=== PATIENT | female | born 1970 | race Hispanic/Latino ===

== ENCOUNTER 2023-08-10 00:32 | Emergency (ER) | payer OTHER ==
--- OUTSIDE RECORDS SUMMARY | 2023-08-10 00:35 | XMS REPORT | Continuity of Care Document ---
:1970 Author Organization [facility] t Address [address] [place] [address] Care Team Providers Name Role Phone BRIAN WARE Primary Care Physician Unavailable Ruth Corona MD Attending Clinician RUTH CORONA Attending Clinician Unavailable RADIOLOGY Attending Clinician Unavailable ABEL NAZARIO Attending Clinician Unavailable Balitbit_R Attending Clinician Unavailable Karolyn Modi Attending Clinician Unavailable RUTH CORONA Admitting Clinician Unavailable Balitbit_R Admitting Clinician Unavailable Karolyn Modi Admitting Clinician Unavailable Payers Payer Name Policy Type Policy Number Effective Date Expiration Date [facility] ([facility]) [id number] Problems Condition Condition Condition Status Onset Resolution Last Treating Co mments Source Name Details Category Date Date Treatment Clinician Date Obesity Obesity Disease Active Univers (BMI (BMI 5-13 ity of 30-39.9) 30-39.9) 00:00: [place] 00 Medical Branch Chest pain Chest pain Disease Active U nivers 5-12 ity of 00:00: [place] 00 Medical Branch Allergies, Adverse Reactions, Alerts Allergy Allergy Status Severity Reaction(s) Onset Inactive Treating Comm ents Source Name Type Date Date Clinician No Known DA Active U 2021-09 [facility] All[facility]ie 0-18 [place] [facility] 00:00: d 00 [facility] NO KNOWN Drug Active [facility] ALLERGIE Class ity of S [facility] Social History Social Habit Start Date Stop Date Quantity Comments Source Gender identity Universit y [facility] Sexual orientation Univer sity [facility] Medical [place] History of Social 2020-04-23 2020-04-23 Univers ity of [place] function 00:00:00 00:00:00 Medical Branch Sex Assigned At [birth year] [facility] Medical Branch Smoking Status Start Date Stop Date Source Tobacco smoking consumption [facility] Medications Ordered Filled Start Stop Current Ordering Indication Dosage Frequency Signature Comments Components Source Medication Medication Date Date Medication? Clinician (SIG) Name Name butalbital- 2022- No 1{tbl} 1 tablet, Univers acetaminoph 05-13 Oral, ity of en-caff 23:30: 23:26 ONCE, 1 [place] (ESGIC) 00 :00 dose, On Medical 50-325-40 [facility] Branch mg tablet 1 05/13/23 at tablet 1830, EDILIA iopamidol 2022- No [id number] 70mL 70 mL, Univers (ISOVUE 05-13 Intravenou ity o f 370-500 mL) 23:15: 23:15 s, ONCE, 1 [place] injection 00 :00 dose, On Medica l 70 mL Sat Branch 05/13/23 at 1815, Routine NaCl 0.9% 2022- No 1000mL at 999 Uni vers (NS) bolus 05-13 mL/hr, ity of infusion 22:00: 23:26 1,000 mL, [place] as 1,000 mL 00 :00 IV Medical Infusion, Branch ONCE, 1 dose, On 05/13/23 at 1700, EDILIA aspirin 0 2022- No 325mg 325 mg, Unive rs tablet 325 05-13 Oral, ity of mg 22:00: 21:10 ONCE, 1 [place] 00 :00 dose, On Medical Sat Branch 05/13/23 at 1700, STAT ketorolac 2022-0 2022- No 30mg 30 mg, Unive rs (TORADOL) 05-13 Slow IV ity of injection 21:45: 21:10 Push, [place] 30 mg 00 :00 ONCE, 1 Medical dose, On Branch 05/13/23 at 1645, EDILIA nirmatrelvi 0 Yes [id number] 3{tbl} Take 3 Univers r-ritonavir 8-26 tablets by it y of (PAXLOVID) 00:00: mouth in [place] as 300 mg (150 00 the Medical mg x 2)-100 morning Branc h mg tablet and 3 tablets in the evening. benzonatate Yes [id number] 200mg Take 1 Univers 200 mg 8-26 capsule by ity of capsule 00:00: mouth 3 [place] 00 (three) Medical times Branch daily as needed for Cough. albuterol Yes [id number] 2{puff} Inhale 2 Univers 90 8-26 Puffs ity of mcg/actuati 00:00: every 4 [place] as on inhaler 00 (four) Medical hours as Branch needed for Wheezing or Shortness of Breath. ondansetron Yes [id number] 1 or 2 Univers 4 mg tablet 8-26 tablets ity o f 00:00: every 8 [place] 00 hours as Medical needed for Branch nausea butalbital- 2022-0 Yes [id number] 1{tbl} Take 1 Univers acetaminoph 8-26 tablet by ity of en-caff 00:00: mouth [place] 50-325-40 00 every 4 Medical mg tablet (four) Branch hours as needed (headache) . methylPREDN 0 Yes [id number] Take by Univers ISolone 1-04 mouth ity of (MEDROL, 00:00: SEE-INSTRU [place] as ANNIA,) 4 mg 00 CTIONS. Medica l tablets follow Branch package directions Immunizations Ordered Immunization Filled Immunization Date Status Commen ts Source Name Name Moderna COVID-19 Moderna COVID-19 2021-06-15 Completed Vaccine Vaccine 00:00:00 Moderna COVID-19 Moderna COVID-19 2021-05-18 Completed Vaccine Vaccine 00:00:00 Vital Signs Vital Name Observation Time Observation Value Comments Source Systolic blood 2023-05-13 23:01:00 131 mm[Hg] Univer sity of pressure [facility] Diastolic blood 2023-05-13 23:01:00 89 mm[Hg] Unive rsity of pressure [facility] Heart rate 2023-05-13 23:01:00 74 /min [facility] Respiratory rate 2023-05-13 23:01:00 18 /min [facility] Oxygen saturation in 2023-05-13 23:01:00 97 /min [facility] Arterial blood by [facility] Pulse oximetry [place] Body temperature 2023-05-13 20:48:00 37.5 Michelle [facility] Body height 2023-05-13 20:48:00 165.1 cm [facility] Body weight 2023-05-13 20:48:00 95.255 kg [facility] BMI 2023-05-13 20:48:00 34.95 kg/m2 [facility] Procedures Procedure Date / Time Performed Performing Clinician Sour e EKG-12 LEAD 2023-05-13 23:29:[address] [facility] CT CHEST PULMONARY 2023-05-13 22:27:53 Ruth Corona [facility] ANGIOGRAM [facility] ASSIGNMENT OF BENEFITS 2023-05-13 21:17:14 Doctor Unassigned, No [facility] Name [facility] Branch LIPASE 2023-05-13 21:05:[address] [facility] TROPONIN I 2023-05-13 21:05:[address] [facility] COMP. METABOLIC PANEL 2023-05-13 21:05:00 Ruth Corona [facility] ([id number]) [facility] CBC WITH DIFF 2023-05-13 21:05:[address] [facility] N-TERMINAL PRO-BNP 2023-05-13 21:05:00 Ruth Corona [facility] CONSENT/REFUSAL FOR 2023-05-13 20:40:54 Doctor Unassigned, No [facility] DIAGNOSIS AND Name [facility] TREATMENT Encounters Start End Encounter Admission Attending Care Care Encounter Source Date/Time Date/Time Type Type Clinicians Facility Department ID 2023-05-13 2023-05-13 Emergency Cj [facility] [id number] [facility] 15:50:00 18:35:00 Ruth JUNIOR [id number] [facility] [id number] [facility] [id number] [facility] 084 Branch 2023-05-13 2023-05-13 Emergency X CJ [facility] ERT [id number] Univers 15:50:00 18:35:00 RUTH [facility] 2022-11-16 2022-11-16 Outpatient R RADIOLOGY [facility] [id number] Univers 00:00:00 00:00:00 [facility] 2022-10-05 2022-10-05 Outpatient R VANHE, [facility] [id number] Univers 14:30:00 14:30:00 ABEL [facility] 2022-07-11 2022-07-11 Outpatient Balitbit_R VFP VFP [id number] [facility] 00:00:00 00:00:00 [id number] Family Practic e 2022-07-07 2022-07-07 Outpatient Balitbit_R VFP VFP [id number] [facility] 00:00:00 00:00:00 [id number] Family Practic e 2022-07-05 2022-07-06 Inpatient EM Modi, [facility] [id number] [facility] 08:11:00 16:31:[address] 2021-06-15 2021-06-15 Outpatient GCCOVIDV GCCOVIDV [id number] [facility] 00:00:00 00:00:00 V 2021-05-18 2021-05-18 Outpatient GCCOVIDV GCCOVIDV [id number] [facility] 00:00:00 00:00:00 V Results Test Description Test Time Test Comments Results Result Comments Source TROPONIN I 2023-05-13 22:03:04 Test Item Value Reference Range Interpretation Comme nts TROPONIN I (test code = 0096925748) <=0.034 TEVIN (test code = TEVIN) Reference (Normal) Range (defined by the 99th percentile reference limit): <= 0.034 ng/mL Note: Cardiac troponin begins to rise 3-4 hours after the onset of ischemia. Repeat in 4-6 hours if the sample was drawn within 3-4 hours of the onset of the symptom and found normal. Diagnosis of myocardial injury is made with acute changes in cTn concentrations with at least one serial sample above the 99th percentile upper reference limit (URL), taken together with the patient's clinical presentation. Biotin has been reported to cause a negative bias, interpret results relative to patient's use of biotin. Lab Interpretation (test code = Normal 80970-5) [id number] 22:00:47 Test Item Value Reference Range Interpretation Comments NT-proBNP (test code = 75141-2) 39 pg/mL <=125 Lab Interpretation (test code = Normal 33041-4) [facility] (96075)2023-05-13 21:52:03 Test Item Value Reference Range Interpretation Comments NA (test code = 139 mmol/L 135-145 4857693531) K (test code = 4.1 mmol/L 3.5-5.0 3406037016) CL (test code = 103 mmol/L 98-108 9351304173) CO2 TOTAL (test code = 27 mmol/L 23-31 9299578424) AGAP (test code = 9 2-16 2517649077) BUN (test code = 18 mg/dL 7-23 7104360197) GLUCOSE (test code = 191 mg/dL 70-110 H 0383145166) CREATININE (test code = 0.86 mg/dL 0.50-1.04 6030773408) TOTAL BILI (test code = 0.5 mg/dL 0.1-1.1 0310698862) CALCIUM (test code = 9.3 mg/dL 8.6-10.6 2820852555) T PROTEIN (test code = 9.1 g/dL 6.3-8.2 H 9123753648) ALBUMIN (test code = 4.6 g/dL 3.5-5.0 6986675080) ALK PHOS (test code = 127 U/L 34-122 H 2790568103) ALTv (test code = 86 U/L 5-35 H 1742-6) AST(SGOT) (test code = 120 U/L 13-40 H 1205088778) eGFR (test code = 69.0 mL/min/1.73m2 7686764432) TEVIN (test code = TEVIN) Association of Glomerular Filtration Rate (GFR) and Staging of Kidney Disease* + --+ --+ ------+| GFR (mL/min/1.73 m2) ?| With Kidney Damage ?| ?Without Kidney Damage+ --------+ --------+ +| ?>90 ?| ?Stage one ?| ? Normal ?+ ---+ ---+ -------+| ?60-89 ?| ?Stage two ?| ? Decreased GFR ? + --+ --+ ------+| ?30-59 ?| ?Stage three ?| ? Stage three ? + --+ --+ ------+| ?15-29 ?| ?Stage four ? | ? Stage four ?+ ---+ ---+ -------+| ?<15 (or dialysis) ? ?| ?Stage five ? | ? Stage five ?+ ---+ ---+ -------+ *Each stage assumes the associated GFR level has been in effect for at least three months. ?Stages 1 to 5, with or without kidney disease, indicate chronic kidney disease. Notes: Determination of stages one and two (with eGFR >59mL/min/1.73 m2) requires estimation of kidney damage for at least three months as defined by structural or functional abnormalities of the kidney, manifested by either:Pathological abnormalities or Markers of kidney damage (including abnormalities in the composition of the blood or urine or abnormalities in imaging tests). Lab Interpretation Abnormal (test code = 29248-5) [facility] 21[facility]51[facility]23 Test Item Value Reference Range Interpretation Comments LIPASE (test code = 4430244261) 183 U/L 0-220 Lab Interpretation (test code = Normal 85709-8) [facility] [id number] 21:35:07 Test Item Value Reference Range Interpretation Comments WBC (test code = 5.46 See_Comment [Automated 4932-2) message] The sy stem which generated this result transmitted reference range : 4.30 - 11.10 10*3/?L. The reference range was not used to interpret this result as normal/abnormal . RBC (test code = 4.32 See_Comment [Automated 036-5) message] The sy stem which generated this result transmitted reference range : 3.93 - 5.25 10*6/?L. The reference range was not used to interpret this result as normal/abnormal . HGB (test code = 13.4 g/dL 11.6-15.0 718-7) HCT (test code = 38.6 % 35.7-45.2 4544-3) MCV (test code = 89.4 fL 80.6-95.5 787-2) MCH (test code = 31.0 pg 25.9-32.8 785-6) MCHC (test code = 34.7 g/dL 31.6-35.1 786-4) RDW-SD (test code = 42.6 fL 39.0-49.9 23695-5) RDW-CV (test code = 13.0 % 12.0-15.5 788-0) PLT (test code = 197 See_Comment [Automated 777-3) message] The sy stem which generated this result transmitted reference range : 166 - 358 10*3/ ?L. The reference r xin was not used to interpret this result as normal/abnormal . MPV (test code = 9.2 fL 9.5-12.9 L 78722-5) NRBC/100 WBC (test 0.0 See_Comment [Automat ed code = 5193780867) message] The system which generated this result transmitted reference range : 0.0 - 10.0 /100 WBCs. The refer ence range was not u sed to interpret th is result as normal/abnormal . NRBC x10^3 (test code See_Comment [Auto mated = 5054471295) message] The s ystem which generated this result transmitted reference range : 10*3/?L. The reference range was not used to interpret this result as normal/abnormal . GRAN MAT (NEUT) % 53.0 % (test code = 770-8) IMM GRAN % (test code 0.40 % = 6351277175) LYMPH % (test code = 31.7 % 736-9) MONO % (test code = 12.8 % 5905-5) EOS % (test code = 1.6 % 713-8) BASO % (test code = 0.5 % 706-2) GRAN MAT x10^3(ANC) 2.89 10*3/uL 1.88-7.09 (test code = 6615075414) IMM GRAN x10^3 (test 0.00-0.06 code = 2995721111) LYMPH x10^3 (test code 1.73 10*3/uL 1.32-3.29 = 731-0) MONO x10^3 (test code 0.70 10*3/uL 0.33-0.92 = 742-7) EOS x10^3 (test code = 0.09 10*3/uL 0.03-0.39 711-2) BASO x10^3 (test code 0.03 10*3/uL 0.01-0.07 = 704-7) Lab Interpretation Abnormal (test code = 11861-2) [facility] METABOLIC [id number] 10:14:00 Test Item Value Reference Range Interpretation Comments SODIUM (test code = NA) 132 mmol/l 134.0-147.0 L POTASSIUM (test code = K) 3.7 mmol/L 3.6-5.2 N CHLORIDE (test code = CL) 97 mmol/l 98.0-107.0 L CARBON DIOXIDE (test code = CO2) 29.3 mmol/l 21.0-33.0 N ANION GAP (test code = GAP) 9.4 0-20 N GLUCOSE (test code = GLU) 282 mg/dl 70.0-110.0 H BLOOD UREA NITROGEN (test code = 12 mg/dl 7.0-18.0 N BUN) CREATININE (test code = CREAT) 0.74 mg/dL 0.60-1.30 N GFR NON BLACK (test code = 87 mL/min 90-95 L GFRNONBLACK) GFR BLACK (test code = GFRBLACK) 106 mL/min 109-115 L CALCIUM (test code = CA) 9.0 mg/dl 8.0-10.5 N LIPID PROFILE (CORONARY RISK)2022-07-06 10:14:00 Test Item Value Reference Range Interpretation Comments TRIGLYCERIDES (test code = TRIG) 125 mg/dl 40.0-150.0 N CHOLESTEROL (test code = CHOL) 205 mg/dl 0.0-200.0 H CHOLESTEROL/HDL RATIO (test code = 4.8 RATIO CHOLHDL) HDL CHOLESTEROL (test code = HDL) 43 mg/dl 30.0-60.0 N LIPOPROTEIN LDL (test code = LDL) 142 mg/dl 70-130 H [id number] 10:07:00 Test Item Value Reference Range Interpretation Comments HGBA1C% (test code = HGBA1C%) 11.2 %A1C 4.8-6.0 H ESTIMATED AVERAGE GLUCOSE (test 275 MG/DL code = EAG) BASIC METABOLIC [id number] 09:41:00 Test Item Value Reference Range Interpretation Comments SODIUM (test code = NA) 133 mmol/l 134.0-147.0 L POTASSIUM (test code = K) 3.5 mmol/L 3.6-5.2 L CHLORIDE (test code = CL) 95 mmol/l 98.0-107.0 L CARBON DIOXIDE (test code = CO2) 30.3 mmol/l 21.0-33.0 N ANION GAP (test code = GAP) 11.2 0-20 N GLUCOSE (test code = GLU) 293 mg/dl 70.0-110.0 H BLOOD UREA NITROGEN (test code = 9 mg/dl 7.0-18.0 N BUN) CREATININE (test code = CREAT) 0.85 mg/dL 0.60-1.30 N GFR NON BLACK (test code = 74 mL/min 90-95 L GFRNONBLACK) GFR BLACK (test code = GFRBLACK) 90 mL/min 109-115 L CALCIUM (test code = CA) 9.1 mg/dl 8.0-10.5 N B-TYPE NATRIURETIC [id number] 09:41:00 Test Item Value Reference Range Interpretation Comments B-TYPE NATRIURETIC PEPTIDE (test 5.2 PG/ML 5-100 N code = BNP) TROP-I HIGH [id number] 09:41:00 Test Item Value Reference Range Interpretation Comments TROP-I HIGH 5.2 pg/mL 0.0-51.4 N CAUTION: Units of the SENSITIVITY (test current TR OPI-HS test code = TROPIHS) methodology( pg/mL) differ from the prior test methodolog y (ng/mL) by afac tor of 1000. -------- -------- ---99th Percentile: Fem ales: 0.0-51.4 pg/mL Males: 0.0-76.2 pg/repacker hese results were ob tained using Dimension EXL TnIHreagent. Re sults from different methodologies s hould not becompared to one another as addi titative results may carol y bymethod. CBC W/AUTO [id number] 09:14:00 Test Item Value Reference Range Interpretation Comments WHITE BLOOD CELL (test code = 7.7 K/mm3 4.5-11.0 N WBC) RED BLOOD CELL (test code = 5.02 M/mm3 3.80-5.20 N RBC) HEMOGLOBIN (test code = HGB) 14.8 gm/dL 12.0-16.0 N HEMATOCRIT (test code = HCT) 43.0 % 36.0-48.0 N MEAN CELL VOLUME (test code = 85.7 UM3 82.0-99.0 N MCV) MEAN CELL HGB (test code = MCH) 29.5 UUG 25.5-32.5 N MEAN CELL HGB CONCETRATION 34.4 gm/dL 29.0-35.5 N (test code = MCHC) RED CELL DISTRIBUTION WIDTH 12.2 % 11.5-15.0 N (test code = RDW) RED CELL DISTRIBUTION WIDTH SD 38.2 fL 34.8-50.2 N (test code = RDW-SD) PLATELET COUNT (test code = 250 K/mm3 150-400 N PLT) MEAN PLATELET VOLUME (test code 9.4 fl 7.4-10.4 N = MPV) NEUTROPHIL % (test code = NT%) 55.4 % 49.0-76.0 N IMMATURE GRANULOCYTE % (test 0.7 % 0.0-0.4 H code = IG%) LYMPHOCYTE % (test code = LY%) 35.4 % 23.0-38.0 N MONOCYTE % (test code = MO%) 5.1 % 1.0-10.0 N EOSINOPHIL % (test code = EO%) 2.9 % 1.0-5.0 N BASOPHIL % (test code = BA%) 0.5 % 0.0-1.0 N NUCLEATED RBC % (test code = 0.0 % 0.0-0.1 N NRBC%) NEUTROPHIL # (test code = NT#) 4.3 K/mm3 2.4-6.3 N IMMATURE GRANULOCYTE # (test 0.05 x10 3/uL 0.00-0.07 N code = IG#) LYMPHOCYTE # (test code = LY#) 2.7 K/mm3 1.2-4.0 N MONOCYTE # (test code = MO#) 0.4 K/mm3 0.0-0.6 N EOSINOPHIL # (test code = EO#) 0.2 K/MM3 0.0-0.7 N BASOPHIL # (test code = BA#) 0.0 K/mm3 0.0-0.2 N NUCLEATED RBC # (test code = 0.00 X10 3uL 0.00-0.01 N NRBC#) - XR CHEST 1 [id number] 08:34:00 [facility] 1970 Sex: F FAX: Becky Vincent DO [place]: EM St: REG -------- Name: VALENTINO SOTO [facility] : 1970 Age/S: 51/F [address] Unit #: [id number] Loc: [facility] [employer], [place]: [place] [id number] Acct: [id number] Dis Date: Status: REG ER PHONE #: [phone] Exam Date: 07/05/2022824 FAX #: [phone] Reason: SOB EXAMS: CPT CODE: [id number] XR CHEST 1 V 46198 LOCATION: B2 EXAM: - XR CHEST 1 V HISTORY: SOB COMPARISON: None FINDINGS: The lungs are clear. No pleural effusion or pneumothorax. The cardiac silhouette is within normal limits. No acute osseous abnormalities. IMPRESSION: No acute cardiopulmonary disease. at 0834 Reported and signed by: Dk Gutierrez M.D. CC: Becky Vincent DO Technologist: CARLOS BRIONES Trnscrd Date/Time/By: 07/05/2022 (0834) : By: [email or web address] PAGE 1 Signed Report FAX: Becky Vincent DO [place]: St: REG Name: VALENTINO SOTO [facility] : 1970 Age/S: 51/F [address] [facility] Unit #: [id number] Loc: [facility] [employer], [place]: [place] [id number] Acct: [id number] Dis Date: Status: REG ER PHONE #: [phone] Exam Date: 07/05 FAX #: [phone] Reason: SOB EXAMS: CPT CODE: [id number] XR CHEST 1 V 50140 (Continued) Orig Print D/T: S: 07/05/2022 (0838) PAGE 2 Signed Report Notes Date/Time Note Provider Source 2023-05-13 7156-48-48N87:34:19Formatting of this Karyn Peace [facility] 18:34:19 note might be different from the RN original.Pt discharged with diagnosis of COVID-19, CP, dyspnea, and non intractable ARANA. Printed and verbal instructions reviewed with and given to patient. Prescriptions given x 5. Pt verbalized understanding of teaching, medications, and recommended follow-up. Denies questions or concerns at this time. Pt ambulatory at discharge. Appears in no apparent distress. No ataxia noted. Accompanied by family member. 70450-9Zkqfmytsn department ZnsmQC7309-22-68O71:35:02Emelifepoint health department NoteTXT1.2.840.471451.1.13.104.2.7.2.72 7879|[id number] for patient [id number] N Dewoody RN[id number] ROMQOMHCUGOUGZWXWRC0822-83-20U37:35:021 .2.840.587545.1.72.3.15|1.2.840.531586. 1.13.104.2.7.2.727879_[id number] 2023-05-13 5705-52-83S43:46:58Formatting of this Annia nguyen RN [facility] 15:46:58 note might be different from the original.Patient states: "I took a covid test yesterday and it was positive. I just feel like I'm getting worse. The chest pain and shortness of breath is getting worse" Pmhx: diabetes. 50354-8Tjgjbdhjt department Triage jffjKP8845-15-71J92:48:12[facility]oint health department Triage noteTXT1.2.840.780735.1.13.104.2.7.2.72 7879|[id number] for patient xmts48670-5Aflwgmoxg department [id number] M Cruz RN[id number] IZEVMGDGHIOAJAXGFEK5456-72-27B55:48:121 .2.840.080100.1.72.3.15|1.2.840.142159. 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 (+) fever, tmax 102F. Frontal headache. No rhinorrhea, sore throat. (+) cough, non-productive. (+) dyspnea, new onset. Left sided chest pain, sharp, constant, aggravated with cough, no definitive relieving factors. No nausea, vomiting, diarrhea. No abdominal pain. No dysuria,frequency. COVID (+) home test yesterday. Brother 04/23/23 from COVID infection. History provided by: PatientPast Medical History/Immunizations:History reviewed. No pertinent past medical history.Tetanus received in last 5 years: Unknown Allergies:No Known AllergiesPast Social History:Substance & Sexual Activity No substance use or sexual activity history on file. Past Surgical History:History reviewed. No pertinent surgical history.Review of Systems: Review of Systems Constitutional: Positive for appetite change, fatigue and fever. HENT: Negative. Eyes: Negative. Respiratory: Positive for cough and shortness of breath. Cardiovascular: Positive for chest pain. Negative for palpitations and leg swelling. Gastrointestinal: Negative. Genitourinary: Negative. Musculoskeletal: Positive for myalgias. Neurological: Negative. Psychiatric/Behavioral: Negative. Physical Exam: ED Triage Vitals [05/13/23 1548] Weight 95.3 kg (210 lb) Actual or estimated Estimated by patient/family report Height 1.651 m (5' 5") BP (!) 139/95 Pulse 105 Resp 18 Temp 37.5 ?C (99.5 ?F) Temp source Oral SpO2 100 % Measured on Room air Physical ExamVitals and nursing note reviewed. Constitutional: Appearance: Normal appearance. HENT: Head: Normocephalic and atraumatic. Right Ear: External ear normal. Left Ear: External ear normal. Nose: Nose normal. Mouth/Throat: Mouth: Mucous membranes are moist. Eyes: Extraocular Movements: Extraocular movements intact. Conjunctiva/sclera: Conjunctivae normal. Cardiovascular: Rate and Rhythm: Regular rhythm. Tachycardia present. Pulmonary: Effort: Pulmonary effort is normal. No respiratory distress. Breath sounds: Normal breath sounds. No wheezing, rhonchi or rales. Comments: No accessory muscle use, speaks easily. Chest: Chest wall: No tenderness. Abdominal: General: There is no distension. Palpations: Abdomen is soft. Tenderness: There is no abdominal tenderness. Musculoskeletal: General: Normal range of motion. Cervical back: Normal range of motion. Right lower leg: No edema. Left lower leg: No edema. Skin: General: Skin is warm and dry. Neurological: General: No focal deficit present. Mental Status: She is alert. Psychiatric: Mood and Affect: Mood normal. Behavior: Behavior normal. Thought Content: Thought content normal. Judgment: Judgment normal. Radiology:CT CHEST PULMONARY ANGIOGRAM Final Result CTA CHEST WITH IV CONTRAST ORDERING PHYSICIAN: RUTH CORONA HISTORY: Chest pain, shortness of breath COMPARISON: None available TECHNIQUE: CTA of the chest with IV contrast. Standard and 3D and coronal MIP reconstructions performed. CT scan performed according to ALARA (As low as reasonably achievable) principles. FINDINGS: Heart size is normal. Aorta is normal in caliber. There is no aneurysm. There is no dissection. There is no pulmonary embolism. Upper abdomen is unremarkable. Bones are unremarkable. No pulmonary infiltrates are identified. IMPRESSION No pulmonary embolism Normal aorta No pulmonary infiltrates or pleural effusions HS:Y RL: 5252 Lab Results:Lab Results CBC WITH DIFF - Abnormal Result Value Ref Range WBC 5.46 4.30 - 11.10 10*3/?L RBC 4.32 3.93 - 5.25 10*6/?L HGB 13.4 11.6 - 15.0 g/dL HCT 38.6 35.7 - 45.2 % MCV 89.4 80.6 - 95.5 fL MCH 31.0 25.9 - 32.8 pg MCHC 34.7 31.6 - 35.1 g/dL RDW-SD 42.6 39.0 - 49.9 fL RDW-CV 13.0 12.0 - 15.5 % PLT 197 166 - 358 10*3/?L MPV 9.2 (*) 9.5 - 12.9 fL NRBC/100 WBC 0.0 0.0 - 10.0 /100 WBCs NRBC x10^3 <0.01 10*3/?L GRAN MAT (NEUT) % 53.0 % IMM GRAN % 0.40 % LYMPH % 31.7 % MONO % 12.8 % EOS % 1.6 % BASO % 0.5 % GRAN MAT x10^3(ANC) 2.89 1.88 - 7.09 10*3/uL IMM GRAN x10^3 <0.03 0.00 - 0.06 10*3/uL LYMPH x10^3 1.73 1.32 - 3.29 10*3/uL MONO x10^3 0.70 0.33 - 0.92 10*3/uL EOS x10^3 0.09 0.03 - 0.39 10*3/uL BASO x10^3 0.03 0.01 - 0.07 10*3/uL COMP. METABOLIC PANEL (57694) - Abnormal NA 139 135 - 145 mmol/L K 4.1 3.5 - 5.0 mmol/L CL 103 98 - 108 mmol/L CO2 TOTAL 27 23 - 31 mmol/L AGAP 9 2 - 16 BUN 18 7 - 23 mg/dL GLUCOSE 191 (*) 70 - 110 mg/dL CREATININE 0.86 0.50 - 1.04 mg/dL TOTAL BILI 0.5 0.1 - 1.1 mg/dL CALCIUM 9.3 8.6 - 10.6 mg/dL T PROTEIN 9.1 (*) 6.3 - 8.2 g/dL ALBUMIN 4.6 3.5 - 5.0 g/dL ALK PHOS 127 (*) 34 - 122 U/L ALTv 86 (*) 5 - 35 U/L AST(SGOT) 120 (*) 13 - 40 U/L eGFR 69.0 mL/min/1.73m2 TROPONIN I - Normal TROPONIN I <0.012 <=0.034 ng/mL N-TERMINAL PRO-BNP - Normal NT-proBNP 39 <=125 pg/mL LIPASE - Normal LIPASE 183 0 - 220 U/L EKG:If EKG completed, see Procedure Note. Orders and Treatments:Orders Placed This Encounter Procedures CT CHEST PULMONARY ANGIOGRAM CBC WITH DIFF COMP. METABOLIC PANEL (04692) TROPONIN I N-TERMINAL PRO-BNP LIPASE Orders Placed This Encounter Medications ketorolac (TORADOL) injection 30 mg aspirin tablet 325 mg NaCl 0.9% (NS) bolus infusion 1,000 mL iopamidol (ISOVUE 370-500 mL) injection 70 mL oseurtmknq-qqjqtpkyhyvpi-ywlr (ESGIC) 50-325-40 mg tablet 1 tablet nirmatrelvir-ritonavir (PAXLOVID) 300 mg (150 mg x 2)-100 mg tablet benzonatate 200 mg capsule albuterol 90 mcg/actuation inhaler ondansetron 4 mg tablet prdlyglwrt-kppddhngwkvzi-qnqp 50-325-40 mg tablet First Provider Eval:ED Events Date/Time Event User Comments 05/13/23 1545 Medical Screening Begins RUTH CORONA MD -- 05/13/23 1545 First Provider Evaluation RUTH CORONA MD -- No notes of EC Admission Criteria type on file.ED COURSEDiagnosis/Impression as of 05/13/23 1829 Chest pain, unspecified type Dyspnea, unspecified type COVID-19 virus infection Nonintractable headache, unspecified chronicity pattern, unspecified headache type Procedures: EKG-12 Lead ROUTINE ONCEDate/Time: 05/13/2023 4:28 PMPerformed by: Ruth Corona MDAuthorized by: Ruth Corona MD ECG reviewed by ED Physician in the absence of a cardiac sonographer: yes Previous ECG: Previous ECG: Compared to current Comparison ECG info: Compared to EKG of 01/28/2019 no significant changesInterpretation: Interpretation: non-specific Rate: ECG rate: 91 ECG rate assessment: normal Rhythm: Rhythm: sinus rhythm Ectopy: Ectopy: none QRS: QRS axis: Normal (-79) QRS conduction: RBBB ST segments: ST segments: Non-specificT waves: T waves: non-specific Comments: Qtc 501MDM:Medical Decision MakingPrimary impression: COVID 19 infectionSecondary impression: chest pain, dyspnea, headacheDifferential Diagnoses, including but not limited to: pneumonia, PE, acute coronary event, PTXProblems Addressed:Chest pain, unspecified type: acute illness or injuryCOVID-19 virus infection: acute illness or injuryDyspnea, unspecified type: acute illness or injuryNonintractable headache, unspecified chronicity pattern, unspecified headache type: acute illness or injuryAmount and/or Complexity of Data ReviewedIndependent Historian: Details: selfLabs: ordered. Decision-making details documented in ED Course.Radiology: ordered. Decision-making details documented in ED Course.ECG/medicine tests: ordered and independent interpretation performed. Decision-making details documented in ED Course.RiskOTC drugs.Prescription drug management.Risk Details: Findings and differential diagnosis discussed with the patient, including but not limited to heart attack. HEART Score 2, low likelihood of acute coronary event. I have recommended and offered further evaluation by serial troponin. The patient acknowledges and understands my recommendations and clinical concerns, as well as the risks of worsening condition or misdiagnosis. The patient declines further ED testing. She is ready to go home. The patient appears to have appropriate medical decision making capacity. She has (+) COVID test at home. Symptoms congruent with COVID. No indication for repeat testing. Follow-up with PCP Flowsheet Documentation: Scoring Tools: No data recordedHEART Score: 2 Disposition/Condition:ED Disposition ED Disposition Disch - Home Condition Stable Comment -- Discharge Medications:Patient's Medications START taking these medications ALBUTEROL 90 MCG/ACTUATION INHALER Inhale 2 Puffs every 4 (four) hours as needed for Wheezing or Shortness of Breath. BENZONATATE 200 MG CAPSULE Take 1 capsule by mouth 3 (three) times daily as needed for Cough. SEUXOVJHAB-CXKDAJXDQGJRX-NXVX 50-325-40 MG TABLET Take 1 tablet by mouth every 4 (four) hours as needed (headache). NIRMATRELVIR-RITONAVIR (PAXLOVID) 300 MG (150 MG X 2)-100 MG TABLET Take 3 tablets by mouth in the morning and 3 tablets in the evening. ONDANSETRON 4 MG TABLET 1 or 2 tablets every 8 hours as needed for nausea CONTINUE taking these medications which have NOT CHANGED METHYLPREDNISOLONE (MEDROL, ANNIA,) 4 MG TABLETS Take by mouth SEE-INSTRUCTIONS. follow package directions START taking Modified Medications as Prescribed No medications on file STOP taking these medications No medications on file Follow-up:PCPElectronically signed by: Ruth Corona MD05/13/23 1829 [id number] Emergency department [id number]:29:43Physician Emergency department [id number] for patient [id number] department Note[address] Xs[id number] UVXEOKVWCEOWHXCCOOP6615-50-16T85:29:431 .2.840.843004.1.72.3.15|[id number]. [id number] 2022-07-06 [id number]:18:[id number] HCAMN 16:18:[address] [address] PATIENT NAME: VALENTINO SOTO ADMIT DATE: 07/05/22ACCOUNT NO: [id number] ROOM NO: [facility] AGE: 51 REPORT TYPE: eVASCULAR STUDY DATE OF : 68 SEX: F ADMITTING PHYSICIAN:Karolyn Modi MD ATTENDING PHYSICIAN:Karolyn Modi MD *[facility]*[address], [place] [address]Oawqb: [phone]: [phone] Lower Extremity Arterial Duplex Evaluation Patient: Geeta Soto Date: 07/06/2022 BP: Location: COCMNURN: [id number] : 1970 Age: 51 Height: 0 in / 0 cmAccession#: [id number] Gender: F Weight: 0 lb / 0 kgBMI/BSA: / *Ordering Physician: * Nadia TroyInterpreting Physician: * April Loredo MD*Land Leases And Rentals Manager: * Diogenes Castro RVT Indica tions: Claudication. Study data: Lower extremity arterial duplex evaluation. Bilateralevaluation with grayscale 2D imaging, color Doppler imaging, andspectral Doppler analysis. Location: Vascular laboratory. Patientstatus: Inpatient. Patient room number: 415. Study status: Routine. Arteri al flow: Location PSV* Flow analysis Location PSV* Flow analysisR EIA 98 Triphasic L EIA 80 Triphasic waveform waveformR TOLL TESTBOARD WORKER 124 Triphasic L TOLL TESTBOARD WORKER 93 Triphasic waveform waveformR FA, prox 115 Triphasic L FA, prox 97 Triphasic waveform waveformR FA, mid 103 Triphasic L FA, mid 98 Triphasic waveform waveformR FA, distal 72 Triphasic L FA, distal 70 Triphasic waveform waveformR popliteal 77 Triphasic L popliteal 67 Triphasic PATIENT NAME: VALENTINO SOTO waveform waveformR MALCOLM, distal 70 Triphasic L MALCOLM, distal 69 Triphasic waveform waveformR TREND INVESTIGATOR, distal 69 Triphasic L TREND INVESTIGATOR, distal 63 Triphasic waveform waveform *Velocities are expressed in cm/sec, Diameters are expressed in cm Conclu sions There is no evidence of stenosis involving the bilateral lowerextremities. Prepared and electronically signed by April Loredo MD07/06/2022 16:16 at 1618 PATIENT NAME: VALENTINO SOTO [id number]:18:00E.[id number] 10AVAvailable for patient mjgjCTTYKRSZWMTQCP1468-35-49V96:19:14 2022-07-06 [id number]:33:00 [facility] HCAMN 10:33:00 [facility] ([facility])Hospitalist Discharge SummaryREPORT#:[id number] REPORT STATUS: SignedDATE:07/06/22 TIME: 1033 PATIENT: AVLENTINO SOTO UNIT #: [id number]#: [id number] ROOM/BED: 415-1DOB: [birth year] AGE: 51 SEX: F ATTEND: Karolyn Modi [facility] AUTHOR: Maine Silva MD * ALL edits or amendments must be made on the electronic/computer document * General InformationDischarge date: 07/06/22Discharge diagnosis:chest painHospital course:Atypical chest pain ACS ruled out CXR unremarkable Cardiology consulted ECHO HTN -- controlled start meds and monitor Hyponatremia -- monitor the trend Hypokalemia -- replace as needed Obesity -- needs life style modification with diet and exercise check HbA1c , lipid panel VTE PPX -- SCDs Pt. condition on discharge: improvedAllergies:Allergies:No Known Allergies (Coded, 07/05/22) Med Rec Med RecDischarge meds:Start taking the following new medications:SPIRONOLACTONE (ALDACTONE) 25 MG TAB 12.5 MILLIGRAM ORAL DAILY. Qty = 30 No Refills amLODIPine (NORVASC) 5 MG TAB 5 MILLIGRAM ORAL EVERY 12 HOURS. Qty = 60 No Refills ObjectiveVS/I OLast Documented: Result Date Time Pulse Ox 98 07/06 713 B/P 134/90 07/06 713 B/P Mean 104.7 07/06 713 O2 Delivery Room air 07/06 713 Temp 36.9 07/06 713 Pulse 74 07/06 713 Resp 17 07/06 713 24 hour I O ending at 0700: 07/06 0700 07/05 1900 Intake Total Output Total Balance Patient 105.455 kg Weight Weight Stated/Reported Measurement Method General appearance: alert, awake, orientedHead/Eyes: atraumaticENT: moist mucosal membranesNeck: full range of motion, no masses or swellingCardiovascular: normal heart sounds, regular rate rhythmRespiratory: clear to auscultation, no distressAbdomen: non-tender, normal bowel sounds, soft, no distentionExtremities: moves all, no cyanosis, no edemaMusculoskeletal: normal inspectionNeuro/GLASS DEPOSITION TENDER: alert, oriented X 3, normal speech, no motor deficitsSkin: dry, intactPsychiatry: normal mood ResultsFindings/Data:Laboratory Tests: 07/06 Chemistry Sodium (134.0 - 147.0 mmol/l) 132 L Potassium (3.6 - 5.2 mmol/L) 3.7 Chloride (98.0 - 107.0 mmol/l) 97 L Carbon Dioxide (21.0 - 33.0 mmol/l) 29.3 Anion Gap (0 - 20) 9.4 BUN (7.0 - 18.0 mg/dl) 12 Creatinine (0.60 - 1.30 mg/dL) 0.74 Est GFR ( Amer) (109 - 115 mL/min) 106 L Est GFR (Non-Af Amer) (90 - 95 mL/min) 87 L Glucose (70.0 - 110.0 mg/dl) 282 H Hemoglobin A1c (4.8 - 6.0 %A1C) 11.2 H Estim Average Glucose (MG/DL) 275 Calcium (8.0 - 10.5 mg/dl) 9.0 Triglycerides (40.0 - 150.0 mg/dl) 125 Cholesterol (0.0 - 200.0 mg/dl) 205 H LDL Cholesterol (70 - 130 mg/dl) 142 H HDL Cholesterol (30.0 - 60.0 mg/dl) 43 Cholesterol/HDL Ratio (RATIO) 4.8 Discharge Instructions PCPPCP follow-up:PCP: Undefined Provider Discharge to: Home/Self CareAdditional Discharge Routines: PCP Follow-Up, Clother In Follow-UpDiet: Resume Home Diet/FeedsActivity: Resume Normal ActivityDischarge management: greater than 30 mins, face to face encounter Follow-up AppointmentsPCP follow-up: PCP: Undefined Provider PCP follow up timeframe: In 1-2 weeksConsulting provider 1: Provider 1: April Loredo MD Specialty: CardiologyInterventional at 1034 RPT #:[id number] OF REPORTDSDischarge [id number]:33:00E.[id number] AVAvailable for patient qitjAULONRHADKCLUA7987-90-06C07:34:20 2022-07-06 [id number]:59:00 [facility] 08:59:00 [facility] ([facility])Cardiology Progress NoteREPORT#:[id number] REPORT STATUS: SignedDATE:07/06/22 TIME: 0859 PATIENT: VALENTINO SOTO UNIT #: [id number]#: [id number] [address] [birth year] AGE: 51 SEX: F ATTEND: ModiKitaKarolyn H [facility] AUTHOR: Nadia Troy NP * ALL edits or amendments must be made on the electronic/computer document * SubjectiveChief complaint:neck painclaudication of lt leg.Patient reports:No: chest pain, palpitations, shortness of breath. Nursing reports:No: complaints. Comments:Patient is on room air, complaining of left leg claudications when walking this morning. Reports left leg pain with dorsiflexionPt rec'd meds late today d/t confusion of assignment, spoke w/ RN. Objective GeneralVS/I O:24 hour I O ending at 0700: 07/05 1900 07/06 0700 Intake Total Output Total Balance Patient 105.455 kg Weight Weight Stated/Reported Measurement Method Vital Signs: Date Time Temp Pulse Resp B/P B/P Pulse O2 O2 Flow FiO2 Mean Ox Delivery Rate 07/06 1109 98.4 80 17 145/87 106.5 99 07/06 0713 98.4 74 17 134/90 104.7 98 Room air 07/06 0315 97.9 73 18 149/90 109.5 98 07/05 2308 97.5 70 18 133/87 102.1 98 07/05 2019 97.9 71 12 143/90 107.7 99 07/05 1500 67 16 141/91 107 95 Room air PATIENT WEIGHT: Weight (lb): Weight (oz): Weight (kg): 105.455 Medications:Active Meds + DC'd Last 24 HrsSpironolactone (ALDACTONE) 12.5 MG DAILY PO Amlodipine Besylate (NORVASC 5MG) 5 MG Q12HR PO Potassium Chloride (POTASSIUM CHLORIDE 20 MEQ TAB.ER) 20 MEQ ONCE ONE PO (DC) Hydralazine HCl (APRESOLINE 50 MG TABLET) 50 MG Q6H PRN PRN PO Physical ExamGeneral appearance: alert, awake, oriented, no acute distress, pleasant, conversational, mental status normal, no respiratory distressHead/Eyes: atraumatic, clear corneaENT: moist mucosal membranesNeck: full range of motion, no JVDCardiovascular: CV assessment: regular rate and rhythm, no murmurRespiratory: clear to auscultation, no distressAbdomen: soft, non-tender, normal bowel sounds, no distention, no guardingGenitourinary: no flank pain, no urinary catheterUpper extremity: UE assessment: normal temperature, no edemaLower extremity: LE assessment: normal temperature, no edema, lef leg pain w/ dorsiflexion.Musculoskeletal: normal inspectionNeuro/GLASS DEPOSITION TENDER: alert, oriented X 3, normal speechPsychiatry: normal affect, normal judgment/insight ResultsFindings/Data:Laboratory Tests 07/06 07/06 0912 0912 Chemistry Sodium (134.0 - 147.0 mmol/l) 132 L Potassium (3.6 - 5.2 mmol/L) 3.7 Chloride (98.0 - 107.0 mmol/l) 97 L Carbon Dioxide (21.0 - 33.0 mmol/l) 29.3 Anion Gap (0 - 20) 9.4 BUN (7.0 - 18.0 mg/dl) 12 Creatinine (0.60 - 1.30 mg/dL) 0.74 Est GFR ( Amer) (109 - 115 mL/min) 106 L Est GFR (Non-Af Amer) (90 - 95 mL/min) 87 L Glucose (70.0 - 110.0 mg/dl) 282 H Hemoglobin A1c (4.8 - 6.0 %A1C) 11.2 H Estim Average Glucose (MG/DL) 275 Calcium (8.0 - 10.5 mg/dl) 9.0 Triglycerides (40.0 - 150.0 mg/dl) 125 Cholesterol (0.0 - 200.0 mg/dl) 205 H LDL Cholesterol (70 - 130 mg/dl) 142 H HDL Cholesterol (30.0 - 60.0 mg/dl) 43 Cholesterol/HDL Ratio (RATIO) 4.8 Results: labs reviewed, vital signs reviewed, vital signs stable, rhythm personally rev'd, current med profile rev'dTelemetry Interpretation:Normal sinus rhythm to sinus tachycardia. Diagnosis, Assessment PlanProblem List/A P: 1. Chest pain Plan discussed with: patient, nurse Free Text DxA P NotesFree Text DxA P Notes:Mr. Soto is a pleasant 51 y/o Female w/ PMHx: HTN presents to [facility] ED today for chest discomfort and dizziness. Dr. Loredo is consulted for chest pain. Per patient while at work yesterday she experienced chest discomfort, "pinch" raditated to her left shoulder, lasted all night, she took Gltplyfwwbgha589fy po x 1. Chest discomfort is worsen w/ deep breath. She also experienced dizziness, "off," bright light corners of her eyes, spinning sensation, and nausea - checked her BP which was 172/100 w/ HR 90's. Denied HAs, reports neck "tightness." Denied trauma. Her normal BP was 130's few weeks ago. Per note, her significant other recently had [place] 2 weeks ago. ED work-up: Sodium 138 potassium 3.5. High sensitive troponin negative x1. EKGshowed normal sinus rhythm with right bundle branch block with heart rate 93 bpmBNP 5.2 chest x-ray unremarkable. At present, on RA, NAD. - Chest pain, atypical. HS troponin negative. EKG shows RBBB. EF 55 to 60% with grade 1 diastolic dysfunction - HTN. BP elevated this morning since not rec'd meds. Cont norvasc 5mg po bid and Aldactone 12.5 mg p.o. daily On hydralazine PRN. - Left LE pain. Will do arterial doppler. Discussed echo result w/ pt and f/u w/ Dr. Loredo in 2 wks. Rx is given to nurse.Okay DC home from cardiac standpoint if arterial doppler normal. at 1428 at 2331 RPT #:[id number] OF REPORTPRProgress [id number]:59:00E.[id number] 060AVAvailable for patient [id number]:28:38 2022-07-05 [id number] HCAMN 19:39:[address] [address] PATIENT NAME: VALENTINO SOTO ADMIT DATE: 07/05/22ACCOUNT NO: [id number] [facility] 51 REPORT TYPE: ECHOCARDIOGRAM REPORT DATE OF : 68 SEX: F ADMITTING PHYSICIAN:Karolyn Modi MD ATTENDING PHYSICIAN:Karolyn Modi MD *[facility]*[address], [place] [address]Kainz: [phone]: [phone] Transthoracic Echocardiogram Patient: Geeta Soto Date: 07/05/2022 BP: Location: [facility]: [id number] : 1970 Age: 51 Height: 65 in / 165 cmAccession#: [id number] Gender: F Weight: 231 lb / 105 kgBMI/BSA: 38.6 kg/m 2 / 2.24 m 2 *Ordering Physician: * Nadia TroyInterpreting Physician: * April Loredo MD*Land Leases And Rentals Manager: * Monik Diaz RVT, RDCS Indica tions: Chest Pain, unspecified. Study data: Transthoracic echocardiogram. Procedure: Transthoracicechocardiography was performed. Images were obtained using a [place] cardiacultrasound machine. The study was technically limited due to pooracoustic window availability. Complete 2D, complete spectral Doppler,and color Doppler. Patient room number: ER. Findin Left ventricle: The cavity size is normal. Wall thickness is mildlyincreased. Systolic function is normal. The estimated ejection fractionis 55-60%. Wall motion is normal; there are no regional wall motionabnormalities. Doppler parameters are consistent with abnormal leftventricular relaxation (grade 1 diastolic dysfunction).Right ventricle: The cavity size is normal. Systolic function isnormal.Left atrium: The atrium is normal in size. PATIENT NAME: VALENTINO SOTO Right atrium: The atrium is normal in size.Aorta: Aortic root: The aortic root is normal in size.Aortic valve: The valve is structurally normal. The valve istrileaflet. There is no evidence of stenosis. There is noregurgitation.Mitral valve: The valve is structurally normal. There is noevidence of stenosis. There is trivial regurgitation.Tricuspid valve: The valve is structurally normal. There is trivialregurgitation.Pulmonic valve: The valve is structurally normal. There is noregurgitation.Pericardium: There is no pericardial effusion.Pulmonary arteries:The main pulmonary artery is normal-sized.Systemic veins:Inferior vena cava: Not well visualized. Measur ements Left ventricle Value Ref MARIYA, LAX 4.0 cm 3.8 - 5.2 ESD, LAX 2.8 cm 2.2 - 3.5 ESD/bsa, LAX 1.2 cm/m 2 1.3 - 2.1 FS, LAX 30 % 27 - 45 ESD/bsa major ax, 2.8 cm/m 2 --------- A4C MARIYA/bsa minor ax, 2.8 cm/m 2 --------- A4C MARIYA major ax, A2C 8.2 cm --------- MARIYA/bsa major ax, 3.6 cm/m 2 --------- A2C PW, ED 1.3 cm 0.6 - 0.9 IVS/PW, ED 0.87 --------- EF 58 % 54 - 74 E', lat salvador, TDI 9.7 cm/sec >=10.0 E/e', lat salvador, TDI 8 --------- E', med salvador, TDI 7.2 cm/sec >=7.0 E/e', med salvador, TDI 11 --------- E', avg, TDI 8.5 cm/sec --------- E/e', avg, TDI 9 <=14 LVOT Value Ref Diam, S 1.80 cm --------- Area 2.5 cm 2 --------- Peak dain, S 1.05 m/sec --------- Mean dain, S 0.73 m/sec --------- VTI, S 21.4 cm --------- Peak grad, S 4 mm Hg --------- Mean grad, S 2 mm Hg --------- SV 55 ml --------- SV/bsa 24 ml/m 2 --------- Ventricular septum Value Ref IVS, ED 1.2 cm 0.6 - 0.9 PATIENT NAME: VALENTINO SOTO Right ventricle Value Ref MARIYA, LAX 3.0 cm --------- RVOT Value Ref Peak v, S 0.78 m/sec --------- Peak grad, S 2 mm Hg --------- Left atrium Value Ref AP dim, ES 2.57 cm 2.70 - 3.80 AP dim, ES MM 2.9 cm 2.7 - 3.8 LA/Ao root ratio, MM 1.21 --------- Aortic valve Value Ref Leaflet sep, MM 1.73 cm --------- Peak v, S 1.35 m/sec --------- Mean v, S 0.87 m/sec --------- VTI, S 25.9 cm --------- Mean grad, S 3.7 mm Hg --------- Peak grad, S 7.3 mm Hg --------- LVOT/AV, VTI ratio 0.83 --------- ONEYDA, VTI 2.10 cm 2 --------- LVOT/AV, Vpeak ratio 0.78 --------- ONEYDA, Vmax 2.04 cm 2 --------- Mitral valve Value Ref Peak E 0.78 m/sec --------- Peak A 1.05 m/sec --------- Decel time 250 ms --------- Peak grad, D 2.4 mm Hg --------- Peak E/A ratio 0.74 --------- Aortic root Value Ref Root diam, ED MM 2.41 cm --------- Conclu sions Summary: Left ventricle: The cavity size is normal. Wall thickness ismildly increased. Systolic function is normal. The estimated ejectionfraction is 55-60%. Wall motion is normal; there are no regional wallmotion abnormalities. Doppler parameters are consistent with abnormalleft ventricular relaxation (grade 1 diastolic dysfunction).Prepared and electronically signed by April Loredo MD07/05/2022 19:38 at 1939 PATIENT NAME: VALENTINO SOTO 18T19:39:00E.[id number] kumar for patient [id number]:39:37 2022-07-05 [id number]:42:00 [facility]N 13:42:00 [facility] ([facility])Hospitalist History PhysicalREPORT#:[id number] REPORT STATUS: SignedDATE:07/05/22 TIME: 1342 PATIENT: VALENTINO SOTO UNIT #: [id number]#: [id number] [address] [birth year] AGE: 51 SEX: F ATTEND: Karolyn Modi MDADM AUTHOR: Malaika Sherwood MD * ALL edits or amendments must be made on the electronic/computer document * History of Present Illness HPIChief complaint:Chest pain PCP:PCP: Undefined Provider HPI:This is a 51 yr old female patient with a h/o HTN is coming with left sided chest pain since yesterday, constant 8/10 , radiating to the back, left shoulderand neck. No cough, no SOB, no nausea, no fever. Pain more with deep breath. EKGno ST T wave changed, R BBB. Cardiac enzymes negative, sodium 133 , potassium 3.5. Past medical history - HTN Past surgical history -- C section Family history Father - CHF, HTN Mother - DM II, OA Socail history -- no tobacco, alcohol and drug abuse History Social HistorySmoking status for patients 13 years old or older: Never Smoker Medication/Allergy-Vaccine HxAllergies:Coded Allergies:No Known Allergies (07/05/22) Review of SystemsConstitutional:Denies: fever, generalized weakness. Skin:Denies: rash. Allergy/Immun:Denies: allergic reaction. Eyes:Denies: visual loss/blurred. ENT:Denies: hearing loss. Respiratory:Denies: productive cough (sputum), SOB. Cardiovascular:Reports: chest pain. Denies: palpitations. GI:Denies: abdominal pain, nausea, vomiting. :Denies: dysuria, hematuria. Musculoskeletal:Denies: joint pain, lumbar pain. Heme:Denies: bleeding, bruising. Endocrine:Denies: polydipsia, polyuria. Neuro:Denies: focal weakness, headache. Psych:Denies: anxiety, depression. Physical ExamVS/I O:Laboratory Tests 07/05/22 0838:[Embedded Image Not Available]Active Meds + DC'd Last 24 HrsIbuprofen (ADVIL) 600 MG X1ED STA PO (DC) Diazepam (VALIUM) 5 MG X1ED STA PO (DC) Recent Impressions-Last 72 HrsRADIOLOGY - XR CHEST 1 V 07/05 0821 Report Impression - Status: SIGNED Entered: 07/05/2022 0838 IMPRESSION:No acute cardiopulmonary disease.Impression By: Fabiola Gutierrez M.D. Vital Signs Date Temp Pulse Resp B/P B/P Mean Pulse Ox FiO2 07/05 98.6 74-92 16-19 141-180/84-110 103-130 97-100 Last Documented: Result Date Time Pulse Ox 100 07/05 1000 B/P 141/84 07/05 1000 B/P Mean 103 07/05 1000 O2 Delivery Room air 07/05 1000 Pulse 74 07/05 1000 Resp 16 07/05 1000 Temp 98.6 07/05 0815 Patient Weight and BMI Weight (kg): 105.455 BMI: 38.7 General appearance: alert, awake, no acute distressHead/Eyes: atraumaticENT: moist mucosal membranesNeck: full range of motion, no masses or swellingCardiovascular: normal heart sounds, regular rate rhythmRespiratory: clear to auscultation, no distressAbdomen: non-tender, normal bowel sounds, soft, no distentionExtremities: moves all, no cyanosis, no edemaMusculoskeletal: normal inspectionNeuro/GLASS DEPOSITION TENDER: alert, oriented X 3, normal speech, no motor deficitsSkin: dry, intactPsychiatry: normal mood Diagnosis, Assessment PlanFree Text A P:Atypical chest pain ACS ruled out CXR unremarkable Cardiology consulted ECHO HTN -- controlled start meds and monitor Hyponatremia -- monitor the trend Hypokalemia -- replace as needed Obesity -- needs life style modification with diet and exercise check HbA1c , lipid panel VTE PPX -- SCDs at 0705 RPT #:[id number] OF REPORTHPHistory and physical [id number]:42:00E.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
--- NOTE | 2023-08-10 00:46 | ER ---
Nurse's Notes [facility] Name: Akbar Pope Age: 52 yrs Sex: Female : 1970 Arrival Date: 08/10/2023 Time: 00:32 Bed Waiting Private MD: Diagnosis: Exposure to bacterial meningitis Presentation: 08/10 00:42 Chief complaint: Patient states: pt is exposed to another pt who is currently in the ER rv for meningitis, denies any symptom at the moment. Coronavirus screen: At this time, the client does not indicate any symptoms associated with coronavirus-19. Ebola Screen: No symptoms or risks identified at this time. Initial Sepsis Screen: Does the patient meet any 2 criteria? No. Patient's initial sepsis screen is negative. Does the patient have a suspected source of infection? No. Patient's initial sepsis screen is negative. Risk Assessment: Do you want to hurt yourself or someone else? Patient reports no desire to harm self or others. Onset of symptoms was August 10, 2023. 00:42 Method Of Arrival: Ambulatory rv 00:42 Acuity: CATALINO 5 rv Triage Assessment: 00:44 General: Appears comfortable, Behavior is calm, cooperative. Pain: Denies pain. Neuro: rv Level of Consciousness is awake, alert, obeys commands, Oriented to person, place, time, situation. Cardiovascular: Capillary refill < 3 seconds Patient's skin is warm and dry. Respiratory: Airway is patent Respiratory effort is even, unlabored. GI: No signs and/or symptoms were reported involving the gastrointestinal system. : No signs and/or symptoms were reported regarding the genitourinary system. Derm: Skin is intact. Historical: - Allergies: 00:44 No Known Allergies; rv - PMHx: 00:44 Hypertensive disorder; Diabetes mellitus; rv - PSHx: 00:44 None; rv - Immunization history:: Adult Immunizations up to date. - Social history:: Smoking status: Patient denies any tobacco usage or history of. Screenin:46 [facility] ED Fall Risk Assessment (Adult) History of falling in the last 3 months, rv including since admission No falls in past 3 months (0 pts) Score/Fall Risk Level 0 - 2 = Low Risk Oriented to surroundings, Maintained a safe environment, Educated pt \T\ family on fall prevention, incl call for assistance when getting out of bed. Abuse screen: Denies threats or abuse. Denies injuries from another. Nutritional screening: No deficits noted. Tuberculosis screening: No symptoms or risk factors identified. Assessment: 00:46 Reassessment: see triage notes. rv Vital Signs: 00:42 BP 154 / 104; Pulse 85; Resp 16; Temp 98.8; Pulse Ox 100% ; Weight 100.7 kg; Height 5 rv ft. 5 in. ; 00:42 Body Mass Index 36.94 (100.70 kg, 165.1 cm) rv ED Course: 00:34 Patient arrived in ED. jj6 00:37 Elo Boogie FNP-C is PHCP. kb 00:37 Andrea Jennings MD is Attending Physician. kb 00:44 Triage completed. rv 00:44 Arm band placed on right wrist. rv 00:46 Patient has correct armband on for positive identification. Cardiac monitoring not rv applicable on this patient. 00:46 Provided Education on: meningitis. rv 00:46 No provider procedures requiring assistance completed. Patient did not have IV access rv during this emergency room visit. Administered Medications: 00:51 Drug: Ciprofloxacin PO 1 grams PO once Route: PO; rv Medication: 00:46 VIS not applicable for this client. rv Outcome: 00:44 Discharge ordered by . kb 00:51 Discharged to home ambulatory, rv 00:51 Condition: good 00:51 Discharge instructions given to patient, Instructed on discharge instructions, follow up and referral plans. Demonstrated understanding of instructions, follow-up care, 00:51 Patient left the ED. rv Signatures: Elo Boogie FNP-C FNP-Ckb Vicente, Ronaldo, RN RN rv Karina Gibson jj6 Corrections: (The following items were deleted from the chart) 00:45 00:44 PMHx: None; rv rv
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
[2023-08-10] MEDS ORDERED: CIPROFLOXACIN HCL 500 MG TAB ONE ×2 (01:02→01:03)
[2023-08-10 01:04] VITALS: BP 154/104; TEMP 98.8; O2SAT 100
== END 2023-08-10 00:51 | disposition home or self-care (01) ==
LOC: ER 00:32
DX: Z20.811 Contact with and (suspected) exposure to meningococcus (principal); I10 Essential (primary) hypertension; E11.9 Type 2 diabetes mellitus without complications
CPT/HCPCS: 99283

== ENCOUNTER 2024-12-02 21:04 | Emergency (ER) | payer OTHER ==
--- OUTSIDE RECORDS SUMMARY | 2024-12-02 21:11 | XMS REPORT | Continuity of Care Document ---
Author Name Unknown Address [address] [facility] [address] [place] [address] Organization [facility] [place] Address [address] [facility]. [address] [place] [address] Care Team Providers Care Field Examiner Name Role Phone BRIAN MALDONADO Primary Care Physician Unavailab le RADIOLOGY Attending Clinician Unavailable Ruth Corona MD Attending Clinician [phone] RUTH CORONA Attending Clinician UnavailABEL Samaniego Attending Clinician Unavailable Neo_Geri Attending Clinician Unavailable Karolyn Modi Attending Clinician Unavailable RUTH CORONA Admitting Clinician Unavailciera Estrada Admitting Clinician Unavailable Karolyn Modi Admitting Clinician Unavailable Payers Payer Name Policy Type Policy Number Effective Date Expirati on Date Source [employer] [id number] 2024 00:00:00 [place] (O) [id number] Problems Condition Name Condition Details Condition Category Status Onset Date Resolution Date Last Treatment Date Treating Clinician Comments Source Obesity (BMI 30-39.9) Obesity (BMI 30-39.9) Disease Active 01-28 00:00: 00 [facility] Chest pain Chest pain Disease Active 01-27 00:00: 00 [facility] Allergies, Adverse Reactions, Alerts Allergy Name Allergy Type Status Severity Reaction(s) Onset Date Inactive Date Treating Clinician Comments Source No Known Allergie s DA Active U 2021-09 018 00:00: 00 [facility] NO KNOWN ALLERGIE S Drug Class Active [facility] Social History Social Habit Start Date Stop Date Quantity Comments Source Gender identity [facility] of Social function 2020-04-23 00:00:00 2020-04-23 00:00:00 [facility] Sex Assigned At 1970 00:00:00 1970 00:00:00 [facility] Smoking Status Start Date Stop Date Source Tobacco smoking consumption unknown [facility] Medications Ordered Medication Name Filled Medication Name Start Date Stop Date Current Medication? Ordering Clinician Indication Dosage Frequency Signature (SIG) Comments Components Source butalbital- acetaminoph en-caff (ESGIC) 50-325-40 mg tablet 1 tablet 05-13 23:30: 00 05-13 23:26 :00 No 1{tbl} 1 tablet, Oral, ONCE, 1 dose, On 05/13/23 at 1830, EDILIA [facility] iopamidol (ISOVUE 370-500 mL) injection 70 mL 05-13 23:15: 00 05-13 23:15 :00 No [id number] 70mL 70 mL, Intravenou s, ONCE, 1 dose, On 05/13/23 at 1815, Routine [facility] NaCl 0.9% (NS) bolus infusion 1,000 mL 05-13 22:00: 00 05-13 23:26 :00 No 1000mL at 999 mL/hr, 1,000 mL, IV Infusion, ONCE, 1 dose, On 05/13/23 at 1700, EDILIA [facility] aspirin tablet 325 mg 05-13 22:00: 00 05-13 21:10 :00 No 325mg 325 mg, Oral, ONCE, 1 dose, On 05/13/23 at 1700, STAT [facility] ketorolac (TORADOL) injection 30 mg 05-13 21:45: 00 05-13 21:10 :00 No 30mg 30 mg, Slow IV Push, ONCE, 1 dose, On 05/13/23 at 1645, EDILIA [facility] nirmatrelvi r-ritonavir (PAXLOVID) 300 mg (150 mg x 2)-100 mg tablet 05-13 00:00: 00 Yes [id number] 3{tbl} Take 3 tablets by mouth in the morning and 3 tablets in the evening. [facility] benzonatate 200 mg capsule 05-13 00:00: 00 Yes [id number] 200mg Take 1 capsule by mouth 3 (three) times daily as needed for Cough. [facility] albuterol 90 mcg/actuati on inhaler 05-13 00:00: 00 Yes [id number] 2{puff} Inhale 2 Puffs every 4 (four) hours as needed for Wheezing or Shortness of Breath. [facility] ondansetron 4 mg tablet 05-13 00:00: 00 Yes [id number] 1 or 2 tablets every 8 hours as needed for nausea [facility] butalbital- acetaminoph en-caff 50-325-40 mg tablet 05-13 00:00: 00 Yes [id number] 1{tbl} Take 1 tablet by mouth every 4 (four) hours as needed (headache) . [facility] methylPREDN ISolone (MEDROL, ANNIA,) 4 mg tablets 1- 00:00: 00 Yes [id number] Take by mouth SEE-INSTRU CTIONS. follow package directions [facility] Immunizations Ordered Immunization Name Filled Immunization Name Date Status Comments Source Moderna COVID-19 Vaccine Moderna COVID-19 Vaccine 2021-06-15 00:00:00 Completed Moderna COVID-19 Vaccine Moderna COVID-19 Vaccine 2021-05-18 00:00:00 Completed Vital Signs Vital Name Observation Time Observation Value Comments S pedro Systolic blood pressure 2023-05-13 23:01:00 131 mm[Hg] [place] [facility] Diastolic blood pressure 2023-05-13 23:01:00 89 mm[Hg] [place] [facility] Heart rate 2023-05-13 23:01:00 74 /min [facility] Respiratory rate 2023-05-13 23:01:00 18 /min [facility] Oxygen saturation in Arterial blood by Pulse oximetry 2023-05-13 23:01:00 97 /min [place] [facility] Body temperature 2023-05-13 20:48:00 37.5 Michelle [facility] Body height 2023-05-13 20:48:00 165.1 cm [facility] Body weight 2023-05-13 20:48:00 95.255 kg [facility] BMI 2023-05-13 20:48:00 34.95 kg/m2 [facility] Procedures Procedure Date / Time Performed Performing Clinicia n Source EKG-12 LEAD 2023-05-13 23:29:44 Ruth Corona [facility] CT CHEST PULMONARY ANGIOGRAM 2023-05-13 22:27:53 Ruth Corona [facility] ASSIGNMENT OF BENEFITS 2023-05-13 21:17:14 Docto r Unassigned, Lloyd [facility] LIPASE 2023-05-13 21:05:00 Ruth Corona [facility] TROPONIN I 2023-05-13 21:05:00 Ruth Corona [facility] COMP. METABOLIC PANEL (48617) 2023-05-13 21:05:00 Ruth Corona [facility] CBC WITH DIFF 2023-05-13 21:05:00 [facility]-TERMINAL PRO-BNP 2023-05-13 21:05:00 Ruth Corona [facility] CONSENT/REFUSAL FOR DIAGNOSIS AND TREATMENT 2023-05-13 20:40:54 Doctor Unassigned, Lloyd [facility] Encounters Start Date/Time End Date/Time Encounter Type Admission Type Attending Clinicians Care Facility Care Department Encounter ID Source 2024-07-17 00:00:00 2024-07-17 00:00:00 Outpatient R RADIOLOGY [facility] [id number] [facility] 2023-05-13 15:50:00 2023-05-13 18:35:00 Emergency Ruth Corona [facility] [id number] [facility] 2023-05-13 15:50:00 2023-05-13 18:35:00 Emergency X RUTH CORONA [facility] ERT [id number] [facility] 2022-11-16 00:00:00 2022-11-16 00:00:00 Outpatient R RADIOLOGY [facility] [id number] [facility] 2022-10-05 14:30:00 2022-10-05 14:30:00 Outpatient R ABEL NAZARIO [facility] [id number] [facility] 2022-07-11 00:00:00 2022-07-11 00:00:00 Outpatient Balitbit_R VFP VFP [id number] [facility] 2022-07-07 00:00:00 2022-07-07 00:00:00 Outpatient Balitbit_R VFP VFP [id number] [facility] 2022-07-05 08:11:00 2022-07-06 16:31:00 Inpatient ANEL ModiKitaKarolyn [facility] [id number] 24 [facility] 2021-06-15 00:00:00 2021-06-15 00:00:00 Outpatient GCCOVIDV GCCOVIDV [id number] [facility] 2021-05-18 00:00:00 2021-05-18 00:00:00 Outpatient GCCOVIDV GCCOVIDV [id number] [facility] Results Test Description Test Time Test Comments Results Result Co mments Source [facility] [id number] 22:00:47* Test Item Value Reference Range Interpretation Comme nts NT-proBNP (test code = 53020-1) 39 pg/mL <=125 Lab Interpretation (test cod e = 45371-2) Normal [facility] MET[facility]OLIC PANEL (84413)2023-05-13 21:52:03* Test Item Value Reference Range Interpretation Comme nts NA (test code = 3302874067) 139 mmol/L 135-145 K (test code = 8437265072) 4.1 mmol/L 3.5-5.0 CL (test code = 4143911045) 103 mmol/L 98-108 CO2 TOTAL (test code = 3219166556) 27 mmol/L 23-31 AGAP (test code = 1186079567) 9 2-16 BUN (test code = 5549739934) 18 mg/dL 7-23 GLUCOSE (test code = 4124975139) 191 mg/dL 70-110 H CREATININE (test code = 3330399469) 0.86 mg/dL 0.50-1.04 TOTAL BILI (test code = 3615615415) 0.5 mg/dL 0.1-1.1 CALCIUM (test code = 8401778226) 9.3 mg/dL 8.6-10.6 T PROTEIN (test code = 2658144739) 9.1 g/dL 6.3-8.2 H ALBUMIN (test code = 7179971681) 4.6 g/dL 3.5-5.0 ALK PHOS (test code = 9809729172) 127 U/L 34-122 H ALTv (test code = 1742-6) 86 U/L 5-35 H AST(SGOT) (test code = 8147951388) 120 U/L 13-40 H eGFR (test code = 8363964662) 69.0 mL/min/1.73m2 TEVIN (test code = TEVIN) Association of [...] or abnormalities in imaging tests). Lab Interpretation (test code = 81062-8) Abnormal [facility] 21:51:23* Test Item Value Reference Range Interpretation Comme nts LIPASE (test code = 0143061017) 183 U/L 0-220 Lab Interpretation (test cod e = 94466-4) Normal [facility] WITH [id number] 21:35:07* Test Item Value Reference Range Interpretation Comme nts WBC (test code = 6690-2) 5.46 See_Comment [Automated ChartITright] The system which generated this result transmitted reference range: 4.30 - 11.10 10*3/?L. The reference range was not used to interpret this result as normal/abnormal. RBC (test code = 789-8) 4.32 See_Comment [Geoloqi] The system which generated this result transmitted reference range: 3.93 - 5.25 10*6/?L. The reference range was not used to interpret this result as normal/abnormal. HGB (test code = 718-7) 13.4 g/dL 11.6-15.0 HCT (test code = 4544-3) 38.6 % 35.7-45.2 MCV (test code = 787-2) 89.4 fL 80.6-95.5 MCH (test code = 785-6) 31.0 pg 25.9-32.8 MCHC (test code = 786-4) 34.7 g/dL 31.6-35.1 RDW-SD (test code = 51668-9) 42.6 fL 39.0-49.9 RDW-CV (test code = 788-0) 13.0 % 12.0-15.5 PLT (test code = 777-3) 197 See_Comment [Automated messa ge] The system which generated this result transmitted reference range: 166 - 358 10*3/?L. The reference range was not used to interpret this result as normal/abnormal. MPV (test code = 10050-8) 9.2 fL 9.5-12.9 L NRBC/100 WBC (test code = 3306147586) 0.0 See_Comment [Automated me ssage] The system which generated this result transmitted reference range: 0.0 - 10.0 /100 WBCs. The reference range was not used to interpret this result as normal/abnormal. NRBC x10^3 (test code = 6901224216) See_Comment [Automated messa ge] The system which generated this result transmitted reference range: 10*3/?L. The reference range was not used to interpret this result as normal/abnormal. GRAN MAT (NEUT) % (test code = 770-8) 53.0 % IMM GRAN % (test code = 5296584053) 0.40 % LYMPH % (test code = 736-9) 31.7 % MONO % (test code = 5905-5) 12.8 % EOS % (test code = 713-8) 1.6 % BASO % (test code = 706-2) 0.5 % GRAN MAT x10^3(ANC) (test code = 2651406453) 2.89 10*3/uL 1.88-7.09 IMM GRAN x10^3 (test code = 3204786836) 0.00-0.06 LYMPH x10^3 (test code = 731-0) 1.73 10*3/uL 1.32-3.29 MONO x10^3 (test code = 742-7) 0.70 10*3/uL 0.33-0.92 EOS x10^3 (test code = 711-2) 0.09 10*3/uL 0.03-0.39 BASO x10^3 (test code = 704-7) 0.03 10*3/uL 0.01-0.07 Lab Interpretation (test code = 09184-1) Abnormal [facility]OLIC [id number] 10:14:00* Test Item Value Reference Range Interpretation Comme nts SODIUM (test code = NA) 132 mmol/l 134.0-147.0 L POTASSIUM (test code = K) 3.7 mmol/L 3.6-5.2 N CHLORIDE (test code = CL) 97 mmol/l 98.0-107.0 L CARBON DIOXIDE (test code = CO2) 29.3 mmol/l 21.0-33.0 N ANION GAP (test code = GAP) 9.4 0-20 N GLUCOSE (test code = GLU) 282 mg/dl 70.0-110.0 H BLOOD UREA NITROGEN (test co de = BUN) 12 mg/dl 7.0-18.0 N CREATININE (test code = CREAT) 0.74 mg/dL 0.60-1.30 N GFR NON BLACK (test code = GFRNONBLACK) 87 mL/min 90-95 L GFR BLACK (test code = GFRBLACK) 106 mL/min 109-115 L CALCIUM (test code = CA) 9.0 mg/dl 8.0-10.5 N LIPID PROFILE (CORONARY RISK)2022-07-06 10:14:00* Test Item Value Reference Range Interpretation Comme nts TRIGLYCERIDES (test code = TRIG) 125 mg/dl 40.0-150.0 N CHOLESTEROL (test code = CHOL) 205 mg/dl 0.0-200.0 H CHOLESTEROL/HDL RATIO (test code = CHOLHDL) 4.8 RATIO HDL CHOLESTEROL (test code = HDL) 43 mg/dl 30.0-60.0 N LIPOPROTEIN LDL (test code = LDL) 142 mg/dl 70-130 H [id number] 10:07:00* Test Item Value Reference Range Interpretation Comme nts HGBA1C% (test code = HGBA1C%) 11.2 %A1C 4.8-6.0 H ESTIMATED AVERAGE GLUCOSE (t est code = EAG) 275 MG/DL BASIC METABOLIC [id number] 09:41:00* Test Item Value Reference Range Interpretation Comme nts SODIUM (test code = NA) 133 mmol/l 134.0-147.0 L POTASSIUM (test code = K) 3.5 mmol/L 3.6-5.2 L CHLORIDE (test code = CL) 95 mmol/l 98.0-107.0 L CARBON DIOXIDE (test code = CO2) 30.3 mmol/l 21.0-33.0 N ANION GAP (test code = GAP) 11.2 0-20 N GLUCOSE (test code = GLU) 293 mg/dl 70.0-110.0 H BLOOD UREA NITROGEN (test co de = BUN) 9 mg/dl 7.0-18.0 N CREATININE (test code = CREAT) 0.85 mg/dL 0.60-1.30 N GFR NON BLACK (test code = GFRNONBLACK) 74 mL/min 90-95 L GFR BLACK (test code = GFRBLACK) 90 mL/min 109-115 L CALCIUM (test code = CA) 9.1 mg/dl 8.0-10.5 N B-TYPE NATRIURETIC [id number] 09:41:00* Test Item Value Reference Range Interpretation Comme nts B-TYPE NATRIURETIC PEPTIDE ( test code = BNP) 5.2 PG/ML 5-100 N TROP-I HIGH [id number] 09:41:00* Test Item Value Reference Range Interpretation Comme nts TROP-I HIGH SENSITIVITY (test code = TROPIHS) 5.2 pg/mL 0.0-51.4 N CAUTION: Units o f the current TROPI-HS test methodology(pg/mL) differ from the prior test methodology (ng/mL) by afactor of 1000. 99th Percentile: Females: 0.0-51.4 pg/mL Males: 0.0-76.2 pg/mLThese results were obtained using inTarvo TnIHreLuminus Devicest. Results from different methodologies should not becompared to one another as quantitative results may vary bymethod. CBC W/AUTO [id number] 09:14:00* Test Item Value Reference Range Interpretation Comme nts WHITE BLOOD CELL (test code = WBC) 7.7 K/mm3 4.5-11.0 N RED BLOOD CELL (test code = RBC) 5.02 M/mm3 3.80-5.20 N HEMOGLOBIN (test code = HGB) 14.8 gm/dL 12.0-16.0 N HEMATOCRIT (test code = HCT) 43.0 % 36.0-48.0 N MEAN CELL VOLUME (test code = MCV) 85.7 UM3 82.0-99.0 N MEAN CELL HGB (test code = MCH) 29.5 UUG 25.5-32.5 N MEAN CELL HGB CONCETRATION (test code = MCHC) 34.4 gm/dL 29.0-35.5 N RED CELL DISTRIBUTION WIDTH (test code = RDW) 12.2 % 11.5-15.0 N RED CELL DISTRIBUTION WIDTH SD (test code = RDW-SD) 38.2 fL 34.8-50.2 N PLATELET COUNT (test code = PLT) 250 K/mm3 150-400 N MEAN PLATELET VOLUME (test c ode = MPV) 9.4 fl 7.4-10.4 N NEUTROPHIL % (test code = NT%) 55.4 % 49.0-76.0 N IMMATURE GRANULOCYTE % (test code = IG%) 0.7 % 0.0-0.4 H LYMPHOCYTE % (test code = LY%) 35.4 % 23.0-38.0 N MONOCYTE % (test code = MO%) 5.1 % 1.0-10.0 N EOSINOPHIL % (test code = EO%) 2.9 % 1.0-5.0 N BASOPHIL % (test code = BA%) 0.5 % 0.0-1.0 N NUCLEATED RBC % (test code = NRBC%) 0.0 % 0.0-0.1 N NEUTROPHIL # (test code = NT#) 4.3 K/mm3 2.4-6.3 N IMMATURE GRANULOCYTE # (test code = IG#) 0.05 x10 3/uL 0.00-0.07 N LYMPHOCYTE # (test code = LY#) 2.7 K/mm3 1.2-4.0 N MONOCYTE # (test code = MO#) 0.4 K/mm3 0.0-0.6 N EOSINOPHIL # (test code = EO#) 0.2 K/MM3 0.0-0.7 N BASOPHIL # (test code = BA#) 0.0 K/mm3 0.0-0.2 N NUCLEATED RBC # (test code = NRBC#) 0.00 X10 3uL 0.00-0.01 N - XR CHEST 1 [id number] 08:34:00 [facility] 1970 Sex: F FAX:Becky Vincent DO [place]: St: REG Name: VALENTINO SOTO [facility] : 1970 Age/S: 51/F [address] Unit #: [id number] [place], [place]: [place] [id number] Acct: [id number] Dis Date: Status: REG ER PHONE #: [phone] Exam Date: 07/05/2022824 FAX #: [phone] Reason: SOB EXAMS: CPT CODE: [id number] XR CHEST 1 V 52990 LOCATION: B2 EXAM: - XR CHEST 1 V HISTORY: SOB COMPARISON: None FINDINGS: The lungs are clear. No pleural effusion or pneumothorax. The cardiac silhouette is within normal limits. No acute osseous abnormalities. IMPRESSION: No acute cardiopulmonary disease. at 0834 Reported and signedby: Dk Gutierrez M.D. CC: Becky Streeterevelio Technologist: CARLOS BRIONES Trnscrd Date/Time/By: 07/05/2022 (0834) : By: [email or web address] PAGE 1 Signed Report FAX: MelisaBecky OBANDO [place]: St: REG Name: VALENTINO SOTO [facility] : 1970 Age/S: 51/F [address] [facility] Unit #: [id number] Loc: [place], [place]: [place] [address] Acct: [id number] Dis Date: Status: REG ER PHONE #: [phone] Exam Date: 07/05/2022824 FAX #: [phone] Reason: SOB EXAMS: CPT CODE: [id number] XR CHEST 1 V 60385 (Continued) Orig Print D/T: S: 07/05/2022 (0838) PAGE 2 Signed Report Notes Date/Time Note Provider Source 2023-05-13 18:34:19 Formatting of this n ote might be different from the original. Pt discharged with diagnosis of COVID-19, CP, dyspnea, and non intractable ARAAN. Printed and verbal instructions reviewed with and given to patient. Prescriptions given x 5. Pt verbalized understanding of teaching, medications, and recommended follow-up. Denies questions or concerns at this time. Pt ambulatory at discharge. Appears in no apparent distress. No ataxia noted. Accompanied by family member. Karyn Logan RN [facility] 2023-05-13 15:46:58 Formatting of this n ote might be different from the original. Patient states: "I took a covid test yesterday and it was positive. I just feel like I'm getting worse. The chest pain and shortness of breath is getting worse" Pmhx: diabetes. Annia Tuttle RN [facility] - Health 2023-05-13 15:39:00 Associated Order(s): EKG-12 Lead ROUTINE ONCE Pre-Procedure Diagnose(s): Chest pain, unspecified type Post-Procedure Diagnose(s): Chest pain, unspecified type [facility] Emergency Department Note Patient Name: Pattie Soto Date of : 1970 52 year old female Treatment Room: Room/bed info not found Primary Care Physician: Brian Maldonado Patient Escorted by: Family [5] Mode of Arrival: Personal means [1] EMS Treatment Prior to ED Arrival: INCIDENT HANDLER treatment: None Travel and Exposure Screening: Symptoms Does patient have any of these symptoms?: (not recorded) Exposure Screening Has patient had contact with someone with a communicable disease in the last month?: (not recorded) Diseases exposed to:: (not recorded) Is Patient ?: (not recorded) Exposure Date: (not recorded) Chief Complaint: Chief Complaint Patient presents with Chest Pain Covid + History of Present Illness: Onset yesterday with generalized malaise, fatigue, decreased appetite. (+) fever, tmax 102F. Frontal headache. No rhinorrhea, sore throat. (+) cough, non-productive. (+) dyspnea, new onset. Left sided chest pain, sharp, constant, aggravated with cough, no definitive relieving factors. No nausea, vomiting, diarrhea. No abdominal pain. No dysuria,frequency. COVID (+) home test yesterday. Brother 04/23/23 from COVID infection. History provided by: Patient Past Medical History/Immunizations: History reviewed. No pertinent past medical history. Tetanus received in last 5 years: Unknown Allergies: No Known Allergies Past Social History: Substance & Sexual Activity No substance use or sexual activity history on file. Past Surgical History: History reviewed. No pertinent surgical history. Review of Systems: Review of Systems Constitutional: Positive [...] 100 % Measured on Room air Physical Exam Vitals and nursing note reviewed. Constitutional: Appearance: Normal [...] Content: Thought content normal. Judgment: Judgment normal. Radiology: CT CHEST PULMONARY ANGIOGRAM Final Result CTA CHEST [...] or pleural effusions HS:Y RL: 5252 Lab Results: Lab Results CBC WITH DIFF - Abnormal Result [...] 0.01 - 0.07 10*3/uL COMP. METABOLIC PANEL (36408) - Abnormal NA 139 135 - 145 [...] Normal LIPASE 183 0 - 220 U/L EKG: If EKG completed, see Procedure Note. Orders and Treatments: Orders Placed This Encounter Procedures CT CHEST PULMONARY ANGIOGRAM CBC WITH DIFF COMP. METABOLIC PANEL (19999) TROPONIN I N-TERMINAL PRO-BNP LIPASE Orders Placed This Encounter Medications ketorolac (TORADOL) injection 30 mg aspirin tablet 325 mg NaCl 0.9% (NS) bolus infusion 1,000 mL iopamidol (ISOVUE 370-500 mL) injection 70 mL wbkaqanejg-frbwvsntnmgid-bmso (ESGIC) 50-325-40 mg tablet 1 tablet nirmatrelvir-ritonavir (PAXLOVID) 300 mg (150 mg x 2)-100 mg tablet benzonatate 200 mg capsule albuterol 90 mcg/actuation inhaler ondansetron 4 mg tablet qnvcutdcej-zfkawqjujgtdm-hcri 50-325-40 mg tablet First Provider Eval: ED Events Date/Time Event User Comments 05/13/23 1545 Medical Screening Begins RUTH CORONA MD -- 05/13/23 1545 First Provider Evaluation RUTH CORONA MD -- No notes of EC Admission Criteria type on file. ED COURSE Diagnosis/Impression as of 05/13/23 1829 Chest pain, unspecified type Dyspnea, unspecified type COVID-19 virus infection Nonintractable headache, unspecified chronicity pattern, unspecified headache type Procedures: EKG-12 Lead ROUTINE ONCE Date/Time: 05/13/2023 4:28 PM Performed by: Ruth Corona MD Authorized by: Ruth Corona MD ECG reviewed by ED Physician in the absence of a crm manager: yes Previous ECG: Previous ECG: Compared to current Comparison ECG info: Compared to EKG of 01/28/2019 no significant changes Interpretation: Interpretation: non-specific Rate: ECG rate: 91 ECG rate assessment: normal Rhythm: Rhythm: sinus rhythm Ectopy: Ectopy: none QRS: QRS axis: Normal (-79) QRS conduction: RBBB ST segments: ST segments: Non-specific T waves: T waves: non-specific Comments: Qtc 501 MDM: Medical Decision Making Primary impression: COVID 19 infection Secondary impression: chest pain, dyspnea, headache Differential Diagnoses, including but not limited to: pneumonia, PE, acute coronary event, PTX Problems Addressed: Chest pain, unspecified type: acute illness or injury COVID-19 virus infection: acute illness or injury Dyspnea, unspecified type: acute illness or injury Nonintractable headache, unspecified chronicity pattern, unspecified headache type: acute illness or injury Amount and/or Complexity of Data Reviewed Independent Historian: Details: self Labs: ordered. Decision-making details documented in ED Course. Radiology: ordered. Decision-making details documented in ED Course. ECG/medicine tests: ordered and independent interpretation performed. Decision-making details documented in ED Course. Risk OTC drugs. Prescription drug management. Risk Details: Findings and differential diagnosis discussed with [...] PCP Flowsheet Documentation: Scoring Tools: No data recorded HEART Score: 2 Disposition/Condition: ED Disposition ED Disposition Disch - Home Condition Stable Comment -- Discharge Medications: Patient's Medications START taking these medications ALBUTEROL 90 MCG/ACTUATION INHALER Inhale 2 Puffs every 4 (four) hours as needed for Wheezing or Shortness of Breath. BENZONATATE 200 MG CAPSULE Take 1 capsule by mouth 3 (three) times daily as needed for Cough. DUYIUTKXQJ-ZQNEAIPNIBSUH-AZKU 50-325-40 MG TABLET Take 1 tablet by [...] taking these medications No medications on file Follow-up: PCP Electronically signed by: Ruth Corona MD 05/13/23 1829 Health 2022-07-06 16:18:00 [id number] [place] [address] [address] [place] [address] PATIENT NAME: VALENTINO SOTO ADMIT DATE: 07/05/22 ACCOUNT NO: [id number] ROOM NO: [facility] AGE: 51 REPORT TYPE: eVASCULAR STUDY DATE OF : [birth year] SEX: F ADMITTING PHYSICIAN:Karolyn Modi MD ATTENDING PHYSICIAN:Karolyn Modi MD *[facility]* [address] [place] [address]. [place] [address] Lower Extremity Arterial Duplex Evaluation Patient: Valentino Soto Study Date: 07/06/2022 BP: Location: [facility] URN: [id number] : 1970 Age: 51 Height: 0 in / 0 cm Gender: F Weight: 0 lb / 0 kg BMI/BSA: / *Ordering Physician: * Nadia [place] *Interpreting Physician: * April Loredo MD *Hand Ii Thermal Cutter: * Diogenes Castro RVT ---- Indications: Claudication. ---- Study data: Lower extremity arterial duplex evaluation. Bilateral evaluation with grayscale 2D imaging, color Doppler imaging, and spectral Doppler analysis. Location: Vascular laboratory. Patient status: Inpatient. Patient room number: 415. Study status: Routine. ---- Arterial flow: Location PSV* Flow analysis Location PSV* Flow analysis R EIA 98 Triphasic L EIA 80 Triphasic waveform waveform R SUPERINTENDENT SYSTEM OPERATION 124 Triphasic L SUPERINTENDENT SYSTEM OPERATION 93 Triphasic waveform waveform R FA, prox 115 Triphasic L FA, prox 97 Triphasic waveform waveform R FA, mid 103 Triphasic L FA, mid 98 Triphasic waveform waveform R FA, distal 72 Triphasic L FA, distal 70 Triphasic waveform waveform R popliteal 77 Triphasic L popliteal 67 Triphasic PATIENT NAME: VALENTINO SOTO waveform waveform R MALCOLM, distal 70 Triphasic L MALCOLM, distal 69 Triphasic waveform waveform R INCIDENT HANDLER, distal 69 Triphasic L INCIDENT HANDLER, distal 63 Triphasic waveform waveform *Velocities are expressed in cm/sec, Diameters are expressed in cm ---- Conclusions There is no evidence of stenosis involving the bilateral lower extremities. Prepared and electronically signed by April Loredo MD 07/06/2022 16:16 at 1618 PATIENT NAME: VALENTINO SOTO [facility] 2022-07-06 10:33:00 [facility] ([facility] Hospitalist Discharge Summary REPORT#:[id number] REPORT STATUS: Signed DATE:07/06/22 TIME: 1033 PATIENT: VALENTINO SOTO UNIT #: [id number] ROOM/BED: [place] [id number] : 69 AGE: 51 SEX: F ATTEND: Karolyn Modi MD ADM AUTHOR: Maine Silva MD * ALL edits or amendments must be made on the electronic/computer document * General Information Discharge date: 07/06/22 Discharge diagnosis: chest pain Hospital course: Atypical chest pain ACS ruled out CXR unremarkable Cardiology consulted ECHO HTN -- controlled start meds and monitor Hyponatremia -- monitor the trend Hypokalemia -- replace as needed Obesity -- needs life style modification with diet and exercise check HbA1c , lipid panel VTE PPX -- SCDs Pt. condition on discharge: improved Allergies: Allergies: No Known Allergies (Coded, 07/05/22) Med Rec Med Rec Discharge meds: Start taking the following new medications: SPIRONOLACTONE (ALDACTONE) 25 MG TAB 12.5 MILLIGRAM ORAL DAILY. Qty = 30 No Refills amLODIPine (NORVASC) 5 MG TAB 5 MILLIGRAM ORAL EVERY 12 HOURS. Qty = 60 No Refills Objective VS/I O Last Documented: Result Date Time Pulse Ox 98 07/06 713 B/P 134/90 07/06 713 B/P Mean 104.7 07/06 713 O2 Delivery Room air 07/06 713 Temp 36.9 07/06 713 Pulse 74 07/06 713 Resp 17 07/06 713 24 hour I O ending at 0700: 07/06 190 Intake Total Output Total Balance Patient 105.455 kg Weight Weight Stated/Reported Measurement Method General appearance: alert, awake, oriented Head/Eyes: atraumatic ENT: moist mucosal membranes Neck: full range of motion, no masses or swelling Cardiovascular: normal heart sounds, regular rate rhythm Respiratory: clear to auscultation, no distress Abdomen: non-tender, normal bowel sounds, soft, no distention Extremities: moves all, no cyanosis, no edema Musculoskeletal: normal inspection Neuro/ATV MECHANIC: alert, oriented X 3, normal speech, no motor deficits Skin: dry, intact Psychiatry: normal mood Results Findings/Data: Laboratory Tests: 07/06 07/06 0912 0912 Chemistry Sodium (134.0 [...] 43 Cholesterol/HDL Ratio (RATIO) 4.8 Discharge Instructions PCP PCP follow-up: PCP: Undefined Provider Discharge to: Home/Self Care Additional Discharge Routines: PCP Follow-Up, Sales Support Coordinator Follow-Up Diet: Resume Home Diet/Feeds Activity: Resume Normal Activity Discharge management: greater than 30 mins, face to face encounter Follow-up Appointments PCP follow-up: PCP: Undefined Provider PCP follow up timeframe: In 1-2 weeks Consulting provider 1: Provider 1: April Loredo MD Specialty: CardiologyInterventional at 1034 RPT #:[id number] END OF REPORT [facility] 2022-07-06 08:59:00 [facility] Cardiology Progress Note REPORT#:[id number] REPORT STATUS: Signed DATE:07/06/22 TIME: 0859 PATIENT: VALENTINO SOTO UNIT #: [id number] [facility] AGE: 51 SEX: F ATTEND: Karolyn Modi MD ADM AUTHOR: Nadia Troy NP * ALL edits or amendments must be made on the electronic/computer document * Subjective Chief complaint: neck pain claudication of lt leg. Patient reports: No: chest pain, palpitations, shortness of breath. Nursing reports: No: complaints. Comments: Patient is on room air, complaining of left leg claudications when walking this morning. Reports left leg pain with dorsiflexion Pt rec'd meds late today d/t confusion of assignment, spoke w/ RN. Objective General VS/I O: 24 hour I O ending at 0700: 07/05 [...] Weight (lb): Weight (oz): Weight (kg): 105.455 Medications: Active Meds + DC'd Last 24 Hrs Spironolactone (ALDACTONE) 12.5 MG DAILY PO Amlodipine Besylate (NORVASC 5MG) 5 MG Q12HR PO Potassium Chloride (POTASSIUM CHLORIDE 20 MEQ TAB.ER) 20 MEQ ONCE ONE PO (DC) Hydralazine HCl (APRESOLINE 50 MG TABLET) 50 MG Q6H PRN PRN PO Physical Exam General appearance: alert, awake, oriented, no acute distress, pleasant, conversational, mental status normal, no respiratory distress Head/Eyes: atraumatic, clear cornea ENT: moist mucosal membranes Neck: full range of motion, no JVD Cardiovascular: CV assessment: regular rate and rhythm, no murmur Respiratory: clear to auscultation, no distress Abdomen: soft, non-tender, normal bowel sounds, no distention, no guarding Genitourinary: no flank pain, no urinary catheter Upper extremity: UE assessment: normal temperature, no edema Lower extremity: LE assessment: normal temperature, no edema, lef leg pain w/ dorsiflexion. Musculoskeletal: normal inspection Neuro/ATV MECHANIC: alert, oriented X 3, normal speech Psychiatry: normal affect, normal judgment/insight Results Findings/Data: Laboratory Tests 07/06 07/06 0912 0912 Chemistry Sodium [...] stable, rhythm personally rev'd, current med profile rev'd Telemetry Interpretation: Normal sinus rhythm to sinus tachycardia. Diagnosis, Assessment Plan Problem List/A P: 1. Chest pain Plan discussed with: patient, nurse Free Text DxA P Notes Free Text DxA P Notes: Mr. Soto is a pleasant 51 y/o Female w/ PMHx: HTN presents to [facility] ED today for chest discomfort and dizziness. Dr. Loredo is consulted for chest pain. Per patient while at work yesterday she experienced chest discomfort, "pinch" raditated to her left shoulder, lasted all night, she took Acetamenophen 650mg po x 1. Chest discomfort is worsen w/ deep breath. She also experienced dizziness, "off," bright light corners of her eyes, spinning sensation, and nausea - checked her BP which was 172/100 w/ HR 90's. Denied HAs, reports neck "tightness." Denied trauma. Her normal BP was 130's few weeks ago. Per note, her significant other recently had [place] 2 weeks ago. ED work-up: Sodium 138 potassium 3.5. High sensitive troponin negative x1. EKG showed normal sinus rhythm with right bundle branch block with heart rate 93 bpm BNP 5.2 chest x-ray unremarkable. At present, on [...] in 2 wks. Rx is given to nurse. Amado DC home from cardiac standpoint if arterial doppler normal. at 1428 at 2332 [facility] #:[id number] END OF REPORT [facility] 2022-07-05 19:39:00 [id number] [address] PATIENT NAME: VALENTINO SOTO ADMIT DATE: 07/05/22 ACCOUNT NO: [id number] ROOM NO: [facility] AGE: 51 REPORT TYPE: ECHOCARDIOGRAM REPORT DATE OF : 68 SEX: F ADMITTING PHYSICIAN:Karolyn Modi MD ATTENDING PHYSICIAN:Karolyn Modi MD *[facility]* [address] [place] [address] Transthoracic Echocardiogram Patient: Valentino Soto Study Date: 07/05/2022 BP: [id number] : 1970 Age: 51 Height: 65 in / 165 cm Gender: F Weight: 231 lb / 105 kg BMI/BSA: 38.6 kg/m 2 / 2.24 m 2 *Ordering Physician: * Nadia Troy *Interpreting Physician: * Apirl Loredo MD *Hand Ii Thermal Cutter: * Monik Diaz, [place], [facility] ---- Indications: Chest Pain, unspecified. ---- Study data: Transthoracic echocardiogram. Procedure: Transthoracic echocardiography was performed. Images were obtained using a [employer] cardiac ultrasound machine. The study was technically limited due to poor acoustic window availability. Complete 2D, complete spectral Doppler, and color Doppler. Patient room number: ER. ---- Findings Left ventricle: The cavity size is normal. Wall thickness is mildly increased. Systolic function is normal. The estimated ejection fraction is 55-60%. Wall motion is normal; there are no regional wall motion abnormalities. Doppler parameters are consistent with abnormal left ventricular relaxation (grade 1 diastolic dysfunction). Right ventricle: The cavity size is normal. Systolic function is normal. Left atrium: The atrium is normal in size. PATIENT NAME: VALENTINO SOTO Right atrium: The atrium is normal in size. Aorta: Aortic root: The aortic root is normal in size. Aortic valve: The valve is structurally normal. The valve is trileaflet. There is no evidence of stenosis. There is no regurgitation. Mitral valve: The valve is structurally normal. There is no evidence of stenosis. There is trivial regurgitation. Tricuspid valve: The valve is structurally normal. There is trivial regurgitation. Pulmonic valve: The valve is structurally normal. There is no regurgitation. Pericardium: There is no pericardial effusion. Pulmonary arteries: The main pulmonary artery is normal-sized. Systemic veins: Inferior vena cava: Not well visualized. ---- Measurements Left ventricle Value Ref MARIYA, LAX 4.0 [...] Root diam, ED MM 2.41 cm --------- ---- Conclusions Summary: Left ventricle: The cavity size is normal. Wall thickness is mildly increased. Systolic function is normal. The estimated ejection fraction is 55-60%. Wall motion is normal; there are no regional wall motion abnormalities. Doppler parameters are consistent with abnormal left ventricular relaxation (grade 1 diastolic dysfunction). Prepared and electronically signed by April Loredo MD 07/05/2022 19:38 at 1939 PATIENT NAME: VALENTINO SOTO [facility] 2022-07-05 13:42:00 [facility] ([facility] Hospitalist History Physical REPORT#:[id number] REPORT STATUS: Signed DATE:07/05/22 TIME: 1342 PATIENT: VALENTINO SOTO UNIT #: [id number] ROOM/BED: 415-1 : 69 AGE: 51 SEX: F ATTEND: Karolyn Modi MD ADM AUTHOR: Malaika Sherwood MD * ALL edits or amendments must be made on the electronic/computer document * History of Present Illness HPI Chief complaint: Chest pain PCP: PCP: Undefined Provider HPI: This is a 51 yr old female patient with a h/o HTN is coming with left sided chest pain since yesterday, constant 8/10 , radiating to the back, left shoulder and neck. No cough, no SOB, no nausea, no fever. Pain more with deep breath. EKG no ST T wave changed, R BBB. Cardiac enzymes negative, sodium 133 , potassium 3.5. Past medical history - HTN Past surgical history -- C section Family history Father - CHF, HTN Mother - DM II, OA Socail history -- no tobacco, alcohol and drug abuse History Social History Smoking status for patients 13 years old or older: Never Smoker Medication/Allergy-Vaccine Hx Allergies: Coded Allergies: No Known Allergies (07/05/22) Review of Systems Constitutional: Denies: fever, generalized weakness. Skin: Denies: rash. Allergy/Immun: Denies: allergic reaction. Eyes: Denies: visual loss/blurred. ENT: Denies: hearing loss. Respiratory: Denies: productive cough (sputum), SOB. Cardiovascular: Reports: chest pain. Denies: palpitations. GI: Denies: abdominal pain, nausea, vomiting. : Denies: dysuria, hematuria. Musculoskeletal: Denies: joint pain, lumbar pain. Heme: Denies: bleeding, bruising. Endocrine: Denies: polydipsia, polyuria. Neuro: Denies: focal weakness, headache. Psych: Denies: anxiety, depression. Physical Exam VS/I O: Laboratory Tests 07/05/22 0838: [Embedded Image Not Available] Active Meds + DC'd Last 24 Hrs Ibuprofen (ADVIL) 600 MG X1ED STA PO (DC) Diazepam (VALIUM) 5 MG X1ED STA PO (DC) Recent Impressions-Last 72 Hrs RADIOLOGY - XR CHEST 1 V 07/05 0821 Report Impression - Status: SIGNED Entered: 07/05/2022 0838 IMPRESSION: No acute cardiopulmonary disease. Impression By: [email or web address] Asia Gutierrez M.D. Vital Signs Date Temp Pulse [...] 38.7 General appearance: alert, awake, no acute distress Head/Eyes: atraumatic ENT: moist mucosal membranes Neck: full range of motion, no masses or swelling Cardiovascular: normal heart sounds, regular rate rhythm Respiratory: clear to auscultation, no distress Abdomen: non-tender, normal bowel sounds, soft, no distention Extremities: moves all, no cyanosis, no edema Musculoskeletal: normal inspection Neuro/ATV MECHANIC: alert, oriented X 3, normal speech, no motor deficits Skin: dry, intact Psychiatry: normal mood Diagnosis, Assessment Plan Free Text A P: Atypical chest pain ACS ruled out CXR unremarkable Cardiology consulted ECHO HTN -- controlled start meds and monitor Hyponatremia -- monitor the trend Hypokalemia -- replace as needed Obesity -- needs life style modification with diet and exercise check HbA1c , lipid panel VTE PPX -- SCDs at 0705 RPT #:[id number] END OF REPORT [facility] 2022-07-05 12:40:00 [facility] ([facility]) Cardiology Consultation REPORT#:[id number] REPORT STATUS: Signed DATE:07/05/22 TIME: 1240 PATIENT: VALENTINO SOTO UNIT #: [id number] ROOM/BED: [facility]-1 : 69 AGE: 51 SEX: F ATTEND: Karolyn Modi MD ADM AUTHOR: Nadia Troy NP * ALL edits or amendments must be made on the electronic/computer document * History of Present Illness HPI Requesting Clinician: Dr Vincent Reason for consult: Chest pain Chief complaint: CHEST PAIN HEADACHE HIGH BLOOD PRESSURE. PCP: PCP: Undefined Provider HPI: Mr. Soto is a pleasant 51 y/o Female w/ PMHx: HTN presents to [facility] ED today for chest discomfort and dizziness. Dr. Loredo is consulted for chest pain. Per patient while at work yesterday she experienced chest discomfort, "pinch" raditated to her left shoulder, lasted all night, she took Acetamenophen 650mg po x 1. Chest discomfort was worsen w/ deep breath. She also experienced dizziness, "off," bright light corners of her eyes, spinning sensation, and nausea - checked her BP which was 172/100 w/ HR 90's. Denied HAs, reports neck "tightness." Denied trauma. Her normal BP was 130's few weeks ago. Per note, her significant other recently had [place] 2 weeks ago. ED work-up: Sodium 138 potassium 3.5. High sensitive troponin negative x1. EKG showed normal sinus rhythm with right bundle branch block with heart rate 93 bpm BNP 5.2 chest x-ray unremarkable. At present, on RA, NAD. History - Adult longitudinal Past medical history: Reports: Hypertension. Additional surgical history: C section Family history: Reports: Cancer (father), Diabetes (Mother). Alcohol use: Denies EtOH use Drug use: Denies recreational drugs Smoking status for patients 13 years old or older: Never Smoker Allergies: Coded Allergies: No Known Allergies (07/05/22) Review of Systems Constitutional: Denies: chills, fatigue, fever, generalized weakness. Skin: Denies: contusion, swelling. Allergy/Immun: Denies: hives, rhinorrhea. Eyes: Denies: redness, discharge, visual loss/blurred. ENT: Denies: mouth pain, nasal congestion, sinus problem, voice change. Respiratory: Denies: RODRIGUEZ (dyspnea on exertion), parox nocturnal dyspnea, pleurisy, pneumonia, SOB. Cardiovascular: Reports: chest pain. Denies: dyspnea on exertion, edema, palpitations, parox noctural dyspnea. GI: Reports: nausea. Denies: diarrhea, dysphagia, hematemesis, melena. : Denies: hematuria, nocturia. Musculoskeletal: neck pain. Denies: extremity pain, extremity swelling, myalgias. Heme: Denies: bleeding, bruising. Endocrine: Denies: cold intolerance, heat intolerance. Neuro: dizziness, lightheaded. Denies: headache. Psych: Denies: change in mental status. Objective General VS/I O: Vital Signs: Date Time Temp Pulse Resp [...] Weight (lb): Weight (oz): Weight (kg): 105.455 Medications: Active Meds + DC'd Last 24 Hrs Amlodipine Besylate (NORVASC 5MG) 5 MG Q12HR PO Hydralazine HCl (APRESOLINE 50 MG TABLET) 50 MG Q6H PRN PRN PO Ibuprofen (ADVIL) 600 MG X1ED STA PO (DC) Diazepam (VALIUM) 5 MG X1ED STA PO (DC) Physical Exam General appearance: alert, awake, oriented, no acute distress, pleasant, conversational, mental status normal, no respiratory distress Head/Eyes: atraumatic, clear cornea ENT: moist mucosal membranes Neck: full range of motion, no JVD Cardiovascular: CV assessment: regular rate and rhythm, no murmur Respiratory: clear to auscultation, no distress Abdomen: soft, non-tender, normal bowel sounds, no distention, no guarding Genitourinary: no flank pain, no urinary catheter Upper extremity: UE assessment: normal temperature, no edema Lower extremity: LE assessment: normal temperature, no edema Musculoskeletal: normal inspection Neuro/ATV MECHANIC: alert, oriented X 3, normal speech Psychiatry: normal affect Results Findings/Data: Laboratory Tests 07/05 0838 Chemistry Sodium (134.0 - 147.0 mmol/l) 133 [...] - 100 PG/ML) 5.2 Laboratory Tests 07/05 0838 Hematology WBC (4.5 - 11.0 K/mm3) 7.7 [...] % (Auto) (23.0 - 38.0 %) 35.4 [place] % (Auto) (1.0 - 10.0 %) 5.1 Eos % (Auto) (1.0 - 5.0 %) 2.9 Baso % (Auto) (0.0 - 1.0 %) 0.5 Neut # (Auto) (2.4 - 6.3 K/mm3) 4.3 Lymph # (Auto) (1.2 - 4.0 K/mm3) 2.7 [place] # (Auto) (0.0 - 0.6 K/mm3) 0.4 [...] Peptide (5 - 100 PG/ML) 5.2 Radiology Data: Recent Impressions: RADIOLOGY - XR CHEST 1 V 07/05 0821 Report Impression - Status: SIGNED Entered: 07/05/2022 0838 IMPRESSION: No acute cardiopulmonary disease. Impression By: LivanVBAlicia Gutierrez M.D. Diagnosis, Assessment Plan Problem List/A P: 1. Chest pain Plan discussed with: patient, nurse Free Text DxA P Notes Free Text DxA P Notes: Mr. Soto is a pleasant 51 y/o Female w/ PMHx: HTN presents to [facility] ED today for chest discomfort and dizziness. Dr. Loredo is consulted for chest pain. Per patient while at work yesterday she experienced chest discomfort, "pinch" raditated to her left shoulder, lasted all night, she took Acetamenophen 650mg po x 1. Chest discomfort is worsen w/ deep breath. She also experienced dizziness, "off," bright light corners of her eyes, spinning sensation, and nausea - checked her BP which was 172/100 w/ HR 90's. Denied HAs, reports neck "tightness." Denied trauma. Her normal BP was 130's few weeks ago. Per note, her significant other recently had [place] 2 weeks ago. ED work-up: Sodium 138 potassium 3.5. High sensitive troponin negative x1. EKG showed normal sinus rhythm with right bundle branch block with heart rate 93 bpm BNP 5.2 chest x-ray unremarkable. At present, on [...] x 1. Discussed plan of care w/ pt. If echo is normal, ok d/c home and f/u w/ Dr. Loredo for outpt stress test. Thank you for the kind consult. at 1501 at 0208 RPT #:[id number] END OF REPORT [facility] 2022-07-05 11:46:00 [facility] ([facility]) EMERGENCY PROVIDER REPORT REPORT#:[id number] REPORT STATUS: Signed DATE:07/05/22 TIME: 1146 PATIENT: VALENTINO SOTO UNIT #: [id number] ROOM/BED: [place] [address] AGE: 51 SEX: F PCP PHYS: Undefined Provider SERVICE AUTHOR: Becky Vincent DO * ALL edits or amendments must be made on the electronic/computer document * HPI-Chest Pain 40 and Over Free Text HPI Notes Free Text HPI Notes 52-year-old female complaining of chest pain, substernal, mild intensity, gradual, waxing and waning, for the past few days REVIEW OF SYSTEMS ROS STATEMENTS *All systems rev neg except as marked* Constitutional: No fever, no chills Cardiovascular: (+) chest pain/discomfort, no palpitations Respiratory: no [id number], no cough GI: No nausea, no vomiting, no diarrhea, no constipation, no abdominal pain Neurologic: No weakness or numbness. General Initial Greet Date/Time 07/05/22 0810 Presentation Chief Complaint Chest pain Sudden in Onset? No Review of Systems ROS Statements All systems rev neg except as marked. Past Medical History - Adult Stated Complaint CHEST PAIN Allergies Coded Allergies: No Known Allergies (07/05/22) Calculated Suicide Risk (nurs) No risk Pt reports no significant: Past surgical history, Family history, Social history Additional Medical History HTN Smoking status for patients 13 years old or older: Never Smoker Physical Exam Vital Signs Vital Signs First Documented: Result Date Time Pulse Ox 97 07/05 0815 B/P 172/110 07/05 0815 B/P Mean 130 07/05 0815 O2 Delivery Room air 07/05 0815 Temp 37.0 07/05 0815 Pulse 92 07/05 0815 Resp 18 07/05 815 Last Documented: Result Date Time Pulse Ox 100 07/05 1100 B/P 151/94 07/05 1100 B/P Mean 113 07/05 1100 O2 Delivery Room air 07/05 1100 Pulse 69 07/05 1100 Resp 18 07/05 1100 Temp 37.0 07/05 815 Review of Vital Signs Reviewed Free Text PE Notes Free Text PE Notes General: Awake, Alert, Cooperative Head/Scalp: NCAT Eyes: Atraumatic, PERRL, EOMI, No periorbital swelling, Conjunctiva NL ENT: Atraumatic, Airway patent, Mucous membranes moist, No facial swelling Neck: Atraumatic, Supple, No swelling, No tracheal deviation Cardiovascular: Heart rate normal, Peripheral circulation normal Respiratory/Chest: Atraumatic, bilateral breath sounds NL, No respiratory distress Abdomen: Soft, Nontender, Nondistended Upper Extremity: Atraumatic, Inspection NL, No swelling, Non-tender, No deformity Lower Ext/Pelvis: Atraumatic, Inspection NL, Non-tender, No deformity, Neurologic: No motor deficits, No sensory deficits Interpretation Diagnostics Lab Results Interpretation Results Laboratory Tests 07/05/22837: [Embedded Image Not Available] Laboratory Tests: 07/05 838 Chemistry Sodium (134.0 - [...] % (Auto) (23.0 - 38.0 %) 35.4 [place] % (Auto) (1.0 - 10.0 %) 5.1 Eos % (Auto) (1.0 - 5.0 %) 2.9 Baso % (Auto) (0.0 - 1.0 %) 0.5 Neut # (Auto) (2.4 - 6.3 K/mm3) 4.3 Lymph # (Auto) (1.2 - 4.0 K/mm3) 2.7 [place] # (Auto) (0.0 - 0.6 K/mm3) 0.4 Eos # (Auto) (0.0 - 0.7 K/MM3) 0.2 Baso # (Auto) (0.0 - 0.2 K/mm3) 0.0 Absolute Nucleated RBC (0.00 - 0.01 X10 3uL) 0.00 Immature Gran % (0.0 - 0.4 %) 0.7 H Nucleated RBC % (0.0 - 0.1 %) 0.0 Immature Gran # (0.00 - 0.07 x10 3/uL) 0.05 Recent Impressions: RADIOLOGY - XR CHEST 1 V 07/05 0821 Report Impression - Status: SIGNED Entered: 07/05/2022 0838 IMPRESSION: No acute cardiopulmonary disease. Impression By: LivanVBAlicia Gutierrez M.D. ECG #1 Interpretation Text/Dict Note 810: 93 bpm, NSR, Intervals reviewed, no STEMI, Nonspecific ST changes Re-Evaluation MDM Free Text MDM Notes Free Text MDM Notes Chest pain Testing ordered to evaluate for ACS, Pneumonia, Arrhythmias Re-Evaluation/Progress #1 Text/Dict Note Cardiology consulted Patient stable at this time. Examination stable. Patient to be admitted for further evaluation and management. Time of Re-Eval 1146 Re-Eval Status Improved ED Course Medication(s) Ordered Medication(s) Ordered: Central Nervous System Agents Sig/Vreonica Start time Last Medication Dose Route Stop Time Status Admin Ibuprofen 600 MG X1ED STA 07/05 1136 DC PO 07/05 1137 Diazepam 5 MG X1ED STA 07/05 1135 DC PO 07/05 1136 Patient Discharge Departure Vital Signs/Condition Vital Signs First Documented: Result Date Time Pulse Ox 97 [...] of this entry have been reviewed. Clinical Impression Clinical Impression Primary Impression: Chest pain Disposition Decision Admit Admit Physician Name Karolyn Modi MD Admit Physician Hospitalist Request Time 1147 Request Date 07/05/22 )( Admission Accepts Yes )( Accepted Time 1147 )( Accepted Date 07/05/22 Discharge/Care Plan (Auto) Prescriptions Current Visit Scripts SPIRONOLACTONE (ALDACTONE) 12.5 MG PO DAILY SPIRONOLACTONE (ALDACTONE) 12.5 MG PO DAILY #30 TAB amLODIPine (NORVASC) 5 MG PO Q12HR amLODIPine (NORVASC) 5 MG PO Q12HR #60 TAB at 1717 RPT #:[id number] END OF REPORT [facility]
[2024-12-02] MEDS ORDERED: ACETAMINOPHEN 500 MG TAB ONE (21:42)
[2024-12-02] MEDS ORDERED: methocarbamoL 500 MG TAB ONE (21:43)
[2024-12-02] MEDS ORDERED: KETOROLAC 30 MG/ML INJ ONE (21:43)
--- NOTE | 2024-12-02 21:45 | RAD REPORT ---
EXAMINATION: Ankle Right 3 View CLINICAL INDICATION: Female, 54 years old. ankle injury, lateral COMPARISON: No prior exam. FINDINGS: No acute fracture. No malalignment/dislocation. No significant focal degenerative change. Other: Soft tissue swelling is present laterally. IMPRESSION: No acute osseous abnormality.
--- NOTE | 2024-12-02 21:56 | EDPHYS ---
Physician Documentation [facility] Name: Akbar Pope Age: 54 yrs Sex: Female : 1970 Arrival Date: 12/02/2024 Time: 21:04 Bed 19 Private MD: ED Physician Kamron Navarrete HPI: 12/02 21:27 This 54 yrs old Female presents to ER via Unassigned with complaints of Fall ec2 Injury, Foot Injury. 21:27 Patient arrives today for evaluation of a right ankle injury. She twisted her ankle is ec2 no now having pain. Patient reports no other injuries or trauma. Taken 500 mg of Tylenol earlier this evening.. 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 - Infectious Disease History:: Denies. - Social history:: Smoking status: Patient denies any tobacco usage or history of. ROS: 21:27 Constitutional: as per hpi ec2 Exam: 21:27 Constitutional: GEN: NAD Head: atraumatic Eyes: EOMI Ears: External ears are ec2 normal. CV: regular rate LUNGS: no respiratory distress ABD: non-distended SKIN: no evidence of rashes MSK: Right lateral malleolus with TTP, ankle effusion appreciated. Intact distal neurovascular status noted. Proximal tib-fib without evidence of injury Vital Signs: 21:15 BP 143 / 92; Pulse 81; Resp 18; Temp 98; Pulse Ox 100% on R/A; Weight 100.24 kg; Height rg5 5 ft. 2 in. ; 22:00 BP 135 / 75; Pulse 80; Resp 17; Pulse Ox 100% on R/A; Pain 1/10; rg5 21:15 Body Mass Index 40.42 (100.24 kg, 157.48 cm) rg5 22:00 Pain Scale: Adult rg5 [place] Coma Score: 21:15 Eye Response: spontaneous(4). Motor Response: obeys commands(6). Verbal Response: rg5 oriented(5). Total: 15. Trauma Score (Adult): 21:15 Eye Response: spontaneous(1); Verbal Response: oriented(1); Motor Response: obeys rg5 commands(2); Systolic BP: > 89 mm Hg(4); Respiratory Rate: 10 to 29 per min(4); Yesi Score: 15; Trauma Score: 12 MDM: 21:15 Medical Screening Exam initiated ec2 21:28 Data reviewed:. Data reviewed: vital signs, nurses notes. ED course: Patient arrives ec2 today for right ankle injury. Examination yields right ankle findings as above. Will obtain ankle x-ray. Suspect ankle sprain, additionally considered fracture. Will treat patient's pain.. 21:55 ED course: X-ray shows no bony fracture. Presentation consistent with ankle sprain. ec2 Will discharge home. Return precautions given.. 12/02 21:26 Order name: Ankle Right 3 View XRAY; Complete Time: 21:55 ec2 12/02 21:26 Order name: Blade Wrap; Complete Time: 21:58 ec2 12/02 21:26 Order name: Ice; Complete Time: 21:49 ec2 Administered Medications: 21:49 Drug: Acetaminophen PO 500 mg PO once Route: PO; rg5 21:58 Follow up: Response: No adverse reaction; Pain is decreased rg5 21:49 Drug: Methocarbamol PO 500 mg PO once Route: PO; rg5 21:58 Follow up: Response: No adverse reaction; Pain is decreased rg5 21:50 Drug: Ketorolac IM 30 mg IM once Route: IM; Site: right deltoid; rg5 21:58 Follow up: Response: No adverse reaction; Pain is decreased rg5 Disposition Summary: 12/02/24 21:56 Discharge Ordered Notes: Location: Home ec2 Condition: Stable ec2 Diagnosis - Sprain of ankle ec2 Followup: ec2 - With: Private Physician - When: - Reason: Re-evaluation by your physician Discharge Instructions: - Discharge Summary Sheet ec2 - Ankle Sprain, [id number] ec2 Forms: - Medication Reconciliation Form ec2 - Antibiotic Education ec2 - Prescription Opioid Use ec2 - Patient Portal Instructions ec2 - Leadership Thank You Letter ec2 - Work release form km Prescriptions: - methocarbamol 500 mg Oral tablet - take 1 tablet ORAL route 4 times per day; 20 tablet; Refills: 0, Product ec2 Selection Permitted Signatures: Dispatcher [employer] Kamron Nicolas MD MD ec2 Hamilton Cruz, RN RN rg5
--- NOTE | 2024-12-02 21:56 | ER ---
Nurse's Notes [facility] Name: Akbar Pope Age: 54 yrs Sex: Female : 1970 Arrival Date: 12/02/2024 Time: 21:04 Bed 19 Private MD: Diagnosis: Sprain of ankle Presentation: 12/02 21:15 Chief complaint: Patient states: pain \T\ swelling on right ankle after she slipped and rg5 fell down around 1400 at work. 21:15 Care prior to arrival: Medication(s) given: Tylenol, 650 mg. Mechanism of Injury: Fall rg5 from standing position. Trauma event details: Injury occurred in the [facility]. 21:15 Acuity: CATALINO 4 rg5 21:15 Method Of Arrival: Wheelchair rg5 21:37 Coronavirus screen: Client denies travel out of the [place] in the last 14 days. Ebola rg5 Screen: Patient negative for fever greater than or equal to 101.5 degrees Fahrenheit, and additional compatible Ebola Virus Disease symptoms. Initial Sepsis Screen: Does the patient meet any 2 criteria?. Initial Sepsis Screen: Does the patient have a suspected source of infection? No. Patient's initial sepsis screen is negative. Risk Assessment: Do you want to hurt yourself or someone else? Patient reports no desire to harm self or others. Onset of symptoms was December 02, 2024. [employer] P[employer]ICINE: 21:37 LMP N/A - Post-menopause, Not rg5 Historical: - Allergies: 21:34 No Known Allergies; rg5 - Home Meds: 21:34 Metformin Oral [Active]; gabapentin oral [Active]; rosuvastatin oral [Active]; rg5 - PMHx: 21:34 diabetes mellitus; Hypertensive disorder; rg5 - Immunization history: Last tetanus immunization: unknown. - Infectious Disease History:: Denies. - Social history:: Smoking status: Patient denies any tobacco usage or history of. Screenin:15 Abuse screen: Denies threats or abuse. Tuberculosis screening: No symptoms or risk rg5 factors identified. 21:33 [facility] ED Fall Risk Assessment (Adult) History of falling in the last 3 months, rg5 including since admission No falls in past 3 months (0 pts) Confusion or Disorientation No (0 pts) Intoxicated or Sedated No (0 pts) Impaired Gait No (0 pts) Mobility Assist Device Used No (0 pt) Altered Elimination Score/Fall Risk Level 0 - 2 = Low Risk Oriented to surroundings, Maintained a safe environment, Hourly rounding (assess needs \T\ fall precautionary measures) done. Nutritional screening: No deficits noted. Primary Survey: 21:15 NO uncontrolled hemorrhage observed. A: The client is awake and alert. The airway is rg5 patent. Breathing/Chest: Spontaneous respiratory effort, equal unlabored respirations, breath sounds clear bilaterally, regular pattern, symmetrical chest rise and fall. Circulation: No external hemorrhage present. Regular and strong central pulse, skin warm/dry/normal color. Disability Pupils are equal, round, reactive to light and accommodation. Client is alert. Exposure/Environment: All clothing and personal items were removed. Forensic evidence collection is not deemed to be indicated at this time. Items placed in patient belonging bag. There is no evidence of uncontrolled external bleeding. 21:37 Reassessment Alertness and Airway: Awake and alert. The airway is patent. Breathing: rg5 Spontaneous respiratory effort, equal unlabored respirations, breath sounds clear bilaterally, regular pattern with symmetrical chest rise and fall. Circulation: No external hemorrhage noted. Regular and strong central pulse, skin warm/dry/normal color. Disability:. Assessment: 21:15 General: Appears in no apparent distress. Behavior is calm, cooperative, appropriate rg5 for age. Pain: Complains of pain in right foot Quality of pain is described as aching. Neuro: Level of Consciousness is awake, alert, obeys commands, Oriented to person, place, time, situation. EENT: No deficits noted. Cardiovascular: Denies chest pain, Patient's skin is warm and dry. Respiratory: Airway is patent Trachea midline Respiratory effort is even, unlabored, Respiratory pattern is regular, symmetrical. GI: Abdomen is round non-distended, Abd is soft and non tender. : No signs and/or symptoms were reported regarding the genitourinary system. Derm: Skin is intact, Skin is dry, Skin is normal. Musculoskeletal: Circulation, motion, and sensation intact. Range of motion: intact in all extremities, Swelling present in right ankle. 22:13 Reassessment: Patient and/or family updated on plan of care and expected duration. Pain rg5 level reassessed. Patient is alert, oriented x 3, equal unlabored respirations, skin warm/dry/pink. Patient states feeling better. Patient states symptoms have improved. Vital Signs: 21:15 BP 143 / 92; Pulse 81; Resp 18; Temp 98; Pulse Ox 100% on R/A; Weight 100.24 kg; Height rg5 5 ft. 2 in. ; 22:00 BP 135 / 75; Pulse 80; Resp 17; Pulse Ox 100% on R/A; Pain 1/10; rg5 21:15 Body Mass Index 40.42 (100.24 kg, 157.48 cm) rg5 22:00 Pain Scale: Adult rg5 [place] Coma Score: 21:15 Eye Response: spontaneous(4). Motor Response: obeys commands(6). Verbal Response: rg5 oriented(5). Total: 15. Trauma Score (Adult): 21:15 Eye Response: spontaneous(1); Verbal Response: oriented(1); Motor Response: obeys rg5 commands(2); Systolic BP: > 89 mm Hg(4); Respiratory Rate: 10 to 29 per min(4); Yesi Score: 15; Trauma Score: 12 ED Course: 21:07 Patient arrived in ED. [email or web address] 21:09 Kamron Navarrete MD is Attending Physician. ec2 21:15 Patient has correct armband on for positive identification. Bed in low position. Call rg5 light in reach. Side rails up X 1. Patient maintains SpO2 saturation greater than 95% on room air. 21:15 Patient maintains SpO2 saturation greater than 95% on room air. rg5 21:20 Thermoregulation: warm blanket given to patient. rg5 21:22 Hamilton Cruz, UGO is Primary Nurse. rg5 21:29 Triage completed. rg5 21:33 Door closed. Noise minimized. Warm blanket given. rg5 21:33 No provider procedures requiring assistance completed. rg5 21:38 Arm band placed on left wrist. rg5 21:39 Ankle Right 3 View XRAY In Process Unspecified. EDMS 22:00 Patient did not have IV access during this emergency room visit. rg5 22:01 Provided Education on: post er care. rg5 Administered Medications: 21:49 Drug: Acetaminophen PO 500 mg PO once Route: PO; rg5 21:58 Follow up: Response: No adverse reaction; Pain is decreased rg5 21:49 Drug: Methocarbamol PO 500 mg PO once Route: PO; rg5 21:58 Follow up: Response: No adverse reaction; Pain is decreased rg5 21:50 Drug: Ketorolac IM 30 mg IM once Route: IM; Site: right deltoid; rg5 21:58 Follow up: Response: No adverse reaction; Pain is decreased rg5 Medication: 21:33 VIS not applicable for this client. rg5 Intake: 21:15 PO: 0ml; Total: 0ml. rg5 Outcome: 21:56 Discharge ordered by . ec2 22:14 Discharged to home via wheelchair, rg5 22:14 Condition: stable 22:14 Discharge instructions given to patient, family, Instructed on discharge instructions, follow up and referral plans. Demonstrated understanding of instructions, follow-up care, medications, Prescriptions given X 1, 22:14 Patient left the ED. rg5 Signatures: Dispatcher [employer] Karina Camilo [email or web address] Kamron Navarrete MD MD ec2 Hamilton Cruz RN RN rg5
[2024-12-02 22:25] VITALS: TEMP 98; O2SAT 100
[2024-12-02 22:29] VITALS: BP 135/75
== END 2024-12-02 22:14 | disposition home or self-care (01) ==
LOC: ER 21:04
DX: S93.401A Sprain of unspecified ligament of right ankle, initial encounter (principal)
CPT/HCPCS: 96372; 99284